=== PATIENT | male | born 1955 | race Caucasian/White ===

== ENCOUNTER 2017-03-04 16:02 | Inpatient (IN) | payer OTHER ==
[2017-03-04 16:11] VITALS: BMI 35.1
[2017-03-04] MEDS ORDERED: ASPIRIN 81 MG CHEWABLE TABLETS PO ONE (16:23)
--- NOTE | 2017-03-04 16:23 | PDOC ---
History of Present Illness <HeberRegi Mei - Last Filed: 03/04/17 17:51> <Jacinta Escamilla - Last Filed: 03/04/17 17:54> - General Chief Complaint: Irregular Heart Beat Stated Complaint: RAPID HEARTBEAT, PCP SENT Time Seen by Provider: 03/04/17 16:22 - History of Present Illness Initial Comments: 03/04/17 16:40 Patient is a 61 year old male with significant medical hx of HTN, HLD, and NIDDM who has been sent to the ED by PMD for new onset atrial flutter. The patient complains of one month of intermittent shortness of breath and palpitations. The patient states he's had a racing heart with some chest pressure, but no pressure within the past 24 hours. The patient does not have a founder and has never received a cardiac work up in the past. Today he saw his PMD for a regular check up, where he received an EKG and was found to be in atrial flutter with a heart rate in the 140s. The patient was sent to the ED for admission for new onset AFib. Denies syncope, nausea, vomiting, abdominal pain, headache, peripheral edema, or diaphoresis. PMD: Roman Gardner MD Surgical Hx: adenoidectomy, tonsillectomy, cholecystectomy Social Hx: Denies tobacco use. Occasional alcohol use. (Jacinta Escamilla) Past History - Past Medical History Anemia: No Asthma: No Cancer: No Cardiac Disorders: No CVA: No COPD: No CHF: No Dementia: No Diabetes: Yes (NIDDM) GI Disorders: No Disorders: No HTN: Yes Hypercholesterolemia: Yes Liver Disease: No Seizures: No Thyroid Disease: Yes - Surgical History Abdominal Surgery: Yes Appendectomy: No Cardiac Surgery: No Cholecystectomy: Yes Lung Surgery: No Neurologic Surgery: No Orthopedic Surgery: No - Psycho/Social/Smoking Cessation Hx Anxiety: No Suicidal Ideation: No Smoking Status: No Smoking History: Former smoker Have you smoked in the past 12 months: No Number of Cigarettes Smoked Daily: 0 If you are a former smoker, when did you quit?: 45 YRS AGO Information on smoking cessation initiated: No Hx Alcohol Use: No Drug/Substance Use Hx: No <Regi Buck - Last Filed: 03/04/17 17:51> <Jacinta Escamilla - Last Filed: 03/04/17 17:54> - Past Medical History Allergies/Adverse Reactions: Allergies Allergy/AdvReac Type Severity Reaction Status Date / Time No Known Allergies Allergy Verified 03/04/17 16:07 Home Medications: Ambulatory Orders Atorvastatin Ca [Lipitor (*)] 10 mg PO HS 01/17/13 Fenofibrate Nanocrystallized [Tricor] 145 mg PO DAILY 01/17/13 Levothyroxine [Synthroid] 75 mcg PO DAILY 01/17/13 Losartan Potassium 25 mg PO HS 01/17/13 Metformin HCl [Glucophage] 1,000 mg PO BID 01/17/13 Cardiac Specific PMH - Complaint Specific PMHX Pacemaker: No <Regi Buck - Last Filed: 03/04/17 17:51> Review of Systems <Regi Buck - Last Filed: 03/04/17 17:51> <Jacinta Escamilla - Last Filed: 03/04/17 17:54> - Review of Systems Comments:: 03/04/17 16:44 CONSTITUTIONAL: Absent: fever, chills, diaphoresis, generalized weakness, malaise, loss of appetite HEENT: Absent: rhinorrhea, nasal congestion, throat pain, throat swelling, difficulty swallowing, mouth swelling, ear pain, eye pain, visual changes CARDIOVASCULAR: Present: irregular heart rate, chest pressure, palpitations Absent: syncope, lightheadedness, peripheral edema RESPIRATORY: Present: shortness of breath Absent: cough, dyspnea with exertion, orthopnea, wheezing, stridor, hemoptysis GASTROINTESTINAL: Absent: abdominal pain, abdominal distension, nausea, vomiting, diarrhea, constipation, melena, hematochezia GENITOURINARY: Absent: dysuria, frequency, urgency, hesitancy, hematuria, flank pain, genital pain MUSCULOSKELETAL: Absent: myalgia, arthralgia, joint swelling SKIN: Absent: rash, itching, pallor HEMATOLOGIC/IMMUNOLOGIC: Absent: easy bleeding, easy bruising, lymphadenopathy, frequent infections ENDOCRINE: Absent: unexplained weight gain, unexplained weight loss, heat intolerance, cold intolerance NEUROLOGIC: Absent: headache, focal weakness or paresthesia, dizziness, unsteady gait, seizure, mental status changes, bladder or bowel incontinence. PSYCHIATRIC: Absent: anxiety, depression, suicidal or homicidal ideation, hallucinations (Jacinta Escamilla) *Physical Exam <Regi Buck - Last Filed: 03/04/17 17:51> <AndiJacinta faith - Last Filed: 03/04/17 17:54> - Vital Signs Last Vital Signs Temp Pulse Resp BP Pulse Ox 98.4 F 77 20 134/115 95 03/04/17 16:07 03/04/17 17:17 03/04/17 17:17 03/04/17 17:17 03/04/17 17:17 - Physical Exam Comments: GENERAL: Well developed, well nourished. Awake and alert. No acute distress. HEENT: Normocephalic, atraumatic. PERRLA, EOMI. No conjunctival pallor. Sclera are non- icteric. Moist mucous membranes. Oropharynx is clear. NECK: Supple. Full ROM. No JVD. Carotid pulses 2+ and symmetric, without bruits. No thyromegaly. No lymphadenopathy. CARDIOVASCULAR: Tachycardia, irregularly irregular. No murmurs, rubs, or gallops. Distal pulses are 2+ and symmetric. PULMONARY: Mild tachypnea. No evidence of respiratory distress. Lungs clear to auscultation bilaterally. No wheezing, rales or rhonchi. ABDOMINAL: Soft. Non-tender. Non-distended. No rebound or guarding. No organomegaly. Normoactive bowel sounds. MUSCULOSKELETAL: Normal range of motion at all joints. No bony deformities or tenderness. No CVA tenderness. EXTREMITIES: No cyanosis. No clubbing. No edema. No calf tenderness. SKIN: Warm and dry. Normal capillary refill. No rashes. No jaundice. NEUROLOGICAL: Alert, awake, appropriate. Cranial nerves 2-12 intact. Normal speech. Gait is normal without ataxia. PSYCHIATRIC: Cooperative. Good eye contact. Appropriate mood and affect. 03/04/17 16:45 (AndiJacinta) Heart Score/ECG Review - History History: Highly suspicious - Electrocardiogram EKG: Non specific repolarization disturbance - Age Age: 45-65 - Risk Factors Risk Factors Heart Score: Yes Hx Hypercholesterolemia, Yes Hx Hypertension, Yes Hx Diabetes Based on the list above the patient has:: >/=3 risk factors or Hx atherosclerotic disease - Troponin Troponin: </= normal limit - Score Heart Score - Total: 6 #1 Compared to previous ECG there are: Changes noted - ECG Impressions Tachycardia: Atrial Flutter (aflutter 2:1 @ 147 bpm upon arrival to ER) <Regi Buck - Last Filed: 03/04/17 17:51> <Jacinta Escamilla - Last Filed: 03/04/17 17:54> #1 03/04/17 16:36 Poor data quality, interpretation may be adversely affected Atrial flutter at 147 BPM with 2:1 AV conduction Right superior axis deviation Pulmonary disease pattern Marked ST abnormality, possible inferior subendocardial injury Abnormal ECG (Jacinta Escamilla) ED Treatment Course - LABORATORY CBC & Chemistry Diagram: 03/04/17 16:20 03/04/17 16:20 <Regi Buck - Last Filed: 03/04/17 17:51> - LABORATORY CBC & Chemistry Diagram: 03/04/17 16:20 03/04/17 16:20 <Jacinta Escamilla - Last Filed: 03/04/17 17:54> - ADDITIONAL ORDERS Additional order review: Laboratory Results 03/04/17 03/04/17 03/04/17 16:20 16:20 16:20 INR 1.33 H PTT (Actin FS) 28.8 Sodium Cancelled Potassium Cancelled Chloride Cancelled Carbon Dioxide Cancelled Anion Gap Cancelled BUN Cancelled Creatinine Cancelled Creat Clearance w eGFR Cancelled Random Glucose Cancelled Calcium Cancelled Total Bilirubin Cancelled AST Cancelled ALT Cancelled Alkaline Phosphatase Cancelled Creatine Kinase Cancelled Troponin I Cancelled B-Natriuretic Peptide Cancelled Total Protein Cancelled Albumin Cancelled 03/04/17 16:20 RBC 4.58 MCV 91.0 MCHC 32.8 RDW 15.4 MPV 11.8 H Neutrophils % 63.5 Lymphocytes % 26.5 Monocytes % 7.1 Eosinophils % 1.9 Basophils % 1.0 - RADIOLOGY Radiograph Interpretation: 03/04/17 17:53 Chest X-Ray Impression: Cardiomegaly, mild congestion. Reported By: Sathya Mcclain MD (Jacinta Escamilla) - Medications Given in the ED: ED Medications Discontinued Medications Generic Name Dose Route Start Last Admin Trade Name Freq PRN Reason Stop Dose Admin Aspirin 162 mg 03/04/17 16:23 03/04/17 17:08 Asa - PO 03/04/17 16:24 162 mg ONCE ONE Administration Diltiazem HCl 20 mg 03/04/17 16:29 03/04/17 16:35 Cardizem Injection - IVPUSH 03/04/17 16:30 20 mg ONCE ONE Administration *DC/Admit/Observation/Transfer - Discharge Dispostion Admit: Yes <Regi Buck - Last Filed: 03/04/17 17:51> <Jacinta Escamilla - Last Filed: 03/04/17 17:54> Diagnosis at time of Disposition: New onset atrial flutter Diabetes Qualifiers: Diabetes mellitus type: type 2 Diabetes mellitus complication status: with unspecified complications Diabetes mellitus extermination inspector insulin use: without extermination inspector use Qualified Code(s): E11.8 - Type 2 diabetes mellitus with unspecified complications Hypertension Qualifiers: Hypertension type: essential hypertension Qualified Code(s): I10 - Essential ( primary) hypertension - Referrals Referrals: Roman Gardner MD [Primary Care Provider] - - Attestations Scribe Attestion: 03/04/17 16:48 Documentation prepared by Jacinta Escamilla, acting as medical typist for Regi Buck MD. (Jacinta Escamilla)
[2017-03-04] MEDS ORDERED: dilTIAZem HCL 50 MG/10 ML - 10 ML VIAL IVPUSH ONE ×2 (16:29→18:50)
[2017-03-04] MEDS ORDERED: HEPARIN NA (PORCINE) 5,000 UNITS/ML 1ML VIAL IVPUSH PRN ×2 (16:30)
[2017-03-04] MEDS ORDERED: dilTIAZem HCL 125 MG/25 ML - 25 ML VIAL ONE ×2 (16:31→18:46)
[2017-03-04] MEDS ORDERED: ASPIRIN 81 MG CHEWABLE TABLETS ONE (17:06)
[2017-03-04 17:22] LABS: EOSINOPHIL 1.9 % (0-4.5); MCH 29.9 pg (25.7-33.7); MCHC 32.8 g/dl (32.0-35.9); MEAN PLT VOLUME 11.8 fl (7.5-11.1); NEUTROPHILS 63.5 % (42.8-82.8); PLATELET COUNT 161 K/MM3 (134-434); RDW 15.4 % (11.9-15.9)
[2017-03-04 17:38] LABS: INR 1.33 (0.82-1.09); PROTHROMBIN TIME (PATIENT) 14.7 SEC (9.98-11.88)
[2017-03-04 17:41] LABS: ACTIVATED PTT 28.8 SECONDS (26.9-34.4)
[2017-03-04] MEDS ORDERED: HEPARIN INFUSION - 500 ML IVPB ONE (17:54)
[2017-03-04] MEDS ORDERED: HEPARIN NA (PORCINE) 5,000 UNITS/ML 1ML VIAL ONE (17:54)
[2017-03-04] MEDS: HEPARIN - 25,000 UNIT in SODIUM CHLORIDE 495 ML IV SCH (18:02)
[2017-03-04] MEDS: HEPARIN NA (PORCINE) 5,000 UNITS/ML 1ML VIAL IVPUSH PRN (18:02)
[2017-03-04] MEDS ORDERED: dilTIAZem HCL 30 MG TABLET (FP) ONE (18:45)
[2017-03-04 18:47] LABS: ALBUMIN 3.6 g/dl (3.4-5.0); ANION GAP 10 (8-16); CALCIUM 9.2 mg/dL (8.5-10.1); CO2 27 mmol/L (21-32); COCKROFT - GAULT 104.51; CREATININE 1.2 mg/dL (0.7-1.3); GLUCOSE,RANDOM 190 mg/dL (74-106); SGOT/AST 24 U/L (15-37); SGPT/ALT 35 U/L (12-78)
[2017-03-04 18:51] LABS: ALK PHOS 13 U/L (45-117); BILIRUBIN,TOTAL 0.5 mg/dL (0.2-1.0); TOT PROT 6.5 g/dl (6.4-8.2); TROPONIN I 0.02 ng/ml (0.00-0.05)
[2017-03-04] MEDS ORDERED: dilTIAZem HCL 60 MG TABLET (FP) ONE (19:44)
[2017-03-04] MEDS ORDERED: ONDANSETRON 4 MG/2 ML VIAL IVPB PRN (20:06)
[2017-03-04] MEDS ORDERED: ACETAMINOPHEN 325 MG TABLET (FP) PO PRN (20:06)
[2017-03-04] MEDS: INSULIN SLIDING SCALE (NOVOLOG) 1 VIAL SQ SCH (22:00)
[2017-03-04] MEDS ORDERED: PATIENT'S OWN MEDICATION (NON-FORMULARY) (Metformin Hcl [Glucophage] 1,000 MG) PO SCH (22:00)
[2017-03-04] MEDS ORDERED: dilTIAZem HCL 30 MG TABLET (FP) PO SCH (22:00)
[2017-03-04] MEDS: LOSARTAN POTASSIUM 25 MG TABLET PO SCH (22:03)
[2017-03-04] MEDS: ATORVASTATIN CA 10 MG TABLET (FP) PO SCH (22:03)
[2017-03-05] MEDS: dilTIAZem HCL 30 MG TABLET (FP) PO SCH ×4 (00:28→17:10)
[2017-03-05] MEDS: INSULIN SLIDING SCALE (NOVOLOG) 1 VIAL SQ SCH ×4 (06:40→21:41)
[2017-03-05] MEDS: LEVOTHYROXINE NA 75 MCG TABLET (FP) PO SCH (06:41)
[2017-03-05] MEDS: metFORMIN HCL 500 MG TABLET (FP) PO SCH ×2 (06:41→17:09)
[2017-03-05 07:47] LABS: ANION GAP 10 (8-16); CALCIUM 8.6 mg/dL (8.5-10.1); CO2 27 mmol/L (21-32); COCKROFT - GAULT 104.53; CREATININE 1.2 mg/dL (0.7-1.3); GLUCOSE,RANDOM 121 mg/dL (74-106); MAGNESIUM 1.9 mg/dL (1.8-2.4); PHOSPHOROUS 3.4 mg/dL (2.5-4.9)
[2017-03-05 08:53] LABS: FREE T4 1.18 ng/dl (0.76-1.16)
[2017-03-05] MEDS: FENOFIBRIC ACID 135 MG CAP PO SCH (09:04)
[2017-03-05] MEDS: PANTOPRAZOLE 40 MG TABLET (FP) PO SCH (09:04)
[2017-03-05] MEDS: HEPARIN - 25,000 UNIT in SODIUM CHLORIDE 495 ML IV SCH ×2 (09:06→17:34)
[2017-03-05] MEDS: HEPARIN NA (PORCINE) 5,000 UNITS/ML 1ML VIAL IVPUSH PRN (09:13)
--- NOTE | 2017-03-05 09:43 | CON.CARD ---
Cardiology Consult (text) - Consultation Consultation Note: CC: new atrial flutter 61 year old male with significant medical hx of HTN, HLD, single kidney ( congenital), hypothyroid and NIDDM who has been sent to the ED by PMD for new onset atrial flutter. one month of intermittent shortness of breath and palpitations: racing heart with some chest pressure, but no pressure within the past 24 hours. 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 On admit, saw his PMD for a regular check up, where he received an EKG and was found to be in atrial flutter with a heart rate in the 140s. Has been placed on heparin drip. Assoc sx's of fatigue, orthopnea, abdominal distension/early satiety. unable to sleep at night and too fatigued to participate in his usual activities, golf etc.. Denies preceding viral illness, alcohol intake, denies f/c/s, nausea, vomiting , abdominal pain, headache, diaphoresis. Denies le edema, presyncope, syncope, bleeding, claudication or transient neurologic symptoms. PMhx: per hpi Surgical Hx: adenoidectomy, tonsillectomy, cholecystectomy Social Hx: never smoker, minimal alcohol use. no illicits fam hx: father with prior arryhtmia requiring cardioversion ros: per hpi Ambulatory Orders Atorvastatin Ca [Lipitor (*)] 10 mg PO HS 01/17/13 Fenofibrate Nanocrystallized [Tricor] 145 mg PO DAILY 01/17/13 Levothyroxine [Synthroid] 75 mcg PO DAILY 01/17/13 Losartan Potassium 25 mg PO HS 01/17/13 Metformin HCl [Glucophage] 1,000 mg PO BID 01/17/13 Current Medications Acetaminophen (Tylenol -) 650 mg PO Q4H PRN PRN Reason: FEVER OR PAIN Atorvastatin Calcium (Lipitor -) 10 mg PO HS [facility] Last Admin: 03/04/17 22:03 Dose: 10 mg Diltiazem HCl (Cardizem -) 30 mg PO Q6HPO [facility] Last Admin: 03/05/17 05:30 Dose: 30 mg Fenofibric Acid (Trilipix -) 135 mg PO DAILY [facility] Last Admin: 03/05/17 09:04 Dose: 135 mg Heparin Sodium (Porcine) (Heparin -) 5,000 unit IVPUSH PRN PRN PRN Reason: Heparin Last Admin: 03/05/17 09:13 Dose: 5,000 unit Heparin Sodium (Porcine) (Heparin -) 1,000 unit IVPUSH PRN PRN PRN Reason: Heparin Heparin Sodium (Porcine) 25, (000 unit/ Sodium Chloride) 500 mls @ 20 mls/hr IV TITR VERONICA; 1,000 UNIT/HR PRN Reason: Protocol Last Admin: 03/05/17 09:06 Dose: 23 mls/hr Insulin Aspart (Novolog Vial Sliding Scale -) 1 vial SQ ACHS VERONICA PRN Reason: Protocol Last Admin: 03/05/17 06:40 Dose: Not Given Levothyroxine Sodium (Synthroid -) 75 mcg PO ACBK [facility] Last Admin: 03/05/17 06:41 Dose: 75 mcg Losartan Potassium (Cozaar -) 25 mg PO HS [facility] Last Admin: 03/04/17 22:03 Dose: 25 mg Metformin HCl (Glucophage -) 1,000 mg PO BIDI [facility] Last Admin: 03/05/17 06:41 Dose: 1,000 mg Ondansetron HCl (Zofran Injection) 4 mg IVPB Q6H PRN PRN Reason: NAUSEA Pantoprazole Sodium (Protonix -) 40 mg PO DAILY [facility] Last Admin: 03/05/17 09:04 Dose: 40 mg Vital Signs - 24 hr 03/04/17 03/04/17 03/04/17 16:07 16:35 17:17 Temperature 98.4 F Pulse Rate 146 H Pulse Rate [ 147 H 77 Apical] Respiratory 19 20 20 Rate Blood Pressure 153/99 Blood Pressure 146/105 134/115 [Left Arm] O2 Sat by Pulse 98 98 95 Oximetry (%) 03/04/17 03/04/17 03/04/17 18:02 18:42 19:01 Temperature Pulse Rate Pulse Rate [ 147 H 104 H Apical] Respiratory 18 20 Rate Blood Pressure 125/94 Blood Pressure 124/94 [Left Arm] O2 Sat by Pulse 100 100 Oximetry (%) 03/04/17 03/04/17 03/05/17 20:38 20:41 02:00 Temperature 98.5 F 98.5 F 97.7 F Pulse Rate 91 H 91 H 100 H Pulse Rate [ Apical] Respiratory 18 18 20 Rate Blood Pressure 137/84 137/84 126/64 Blood Pressure [Left Arm] O2 Sat by Pulse 100 Oximetry (%) 03/05/17 06:00 Temperature 98.6 F Pulse Rate 81 Pulse Rate [ Apical] Respiratory 20 Rate Blood Pressure 109/69 Blood Pressure [Left Arm] O2 Sat by Pulse Oximetry (%) Intake & Output 03/03/17 03/04/17 03/05/17 03/06/17 07:59 07:59 07:59 07:59 Intake Total 230 Output Total 400 Balance -170 Weight 252 lb 0.8 oz NAD, calm jvd mild elevation, neck supple bibasilar crackles, rt basilar dullness, nl effort rate controlled, irregular rhythm, nl s1, s2 no mrg. non-displaced pmi + bs soft nt nd obese ext with trace edema no cyanosis, clubbing no carotid bruits aaox3 no jaundice, diaphoresis CBC, BMP 03/04/17 16:20 03/05/17 05:35 Laboratory Tests 03/04/17 03/04/17 03/04/17 17:39 17:39 19:11 Magnesium Creatine Kinase 267 Creatine Kinase Index 1.3 CK-MB (CK-2) 3.425 Troponin I 0.02 B-Natriuretic Peptide 1249.09 H Albumin 3.6 TSH 2.37 Free T4 03/05/17 05:35 Magnesium 1.9 Creatine Kinase Creatine Kinase Index CK-MB (CK-2) Troponin I B-Natriuretic Peptide Albumin TSH Free T4 1.18 H EKG 03/04 PCP: atrial flutter. VR 145 bpm. rt superior axis, inferior STD ischemia vs. strain. tele: atrial flutter with intermittent rates into the 120's. cxr :increased interstitial markings, possible acute congestion 61 year old male with significant medical hx of HTN, HLD, hypothyroid and NIDDM who has been sent to the ED by PMD for new onset atrial flutter. new onset atrial flutter - echo - inferior std. complete KAILEY. first set of enzymes negative. - Based on CHADS-VASC warrants AC. Currently on heparin drip. Can transition to eliquis if affordable per insurance, would confirm before transitioning. Otherwise will need coumadin - currently reasonable rate control with diltiazem, but showing episodes of volume overload. May need beta kanu if echo shows depressed function. May need to lower losartan dose if low bp persists. - management of thyroid per pmd. - If does not convert on his own without diuresis, should be considered for elective outpatient cardioversion since symptomatic. - no RF's for PE, but if right heart shows strain on echo, would consider evaluation. EKG with signs of rt sided abnormalities, no comparison available. - recommend jere screening as outpatient. HTN - on losartan as outpatient, meds as above HL - on tricor and low dose atorvastatin as outpatient, con't
[2017-03-05] MEDS ORDERED: PATIENT'S OWN MEDICATION (NON-FORMULARY) (Fenofibrate Nanocrystallized [Tricor] 145 MG) PO SCH (10:00)
[2017-03-05 11:10] LABS: TROPONIN I < 0.02 ng/ml (0.00-0.05)
--- NOTE | 2017-03-05 11:31 | HP ---
Admitting History and Physical - Primary Care Physician PCP: Roman Gardner - Admission Chief Complaint: I felt bad History of Present Illness: Mr Deras is a very pleasant 61 year old male who was sent in by Dr Gardner for new onset afib with rvr. He says he overall has been doing well, but over the past month has episodes where he feels bad. He says it is mainly shortness of breath. He notes the shortness of breath on exertion and when he is lying down. He has to sit up to sleep sometimes. Aside from this he is doing well. He denies fevers, chills, lightheadedness, dizziness, passing out, chest pain, coughing, abdominal pain, nausea, vomiting, diarrhea, difficulty or pain on urination, or swelling. He was seen in the office and was found to have new onset atrial fibrillation. He was sent in for further evaluation. Currently he says he is feeling well. History Source: Patient Limitations to Obtaining History: No Limitations - Past Medical History Cardiovascular: Yes: HTN, Hyperlipdemia Endocrine: Yes: Diabetes Mellitus, Hypothyroidism - Past Surgical History Past Surgical History: Yes: Tonsillectomy - Smoking History Smoking history: Former smoker Have you smoked in the past 12 months: No Aproximately how many cigarettes per day: 0 If you are a former smoker, when did you quit?: 45 YRS AGO - Alcohol/Substance Use Hx Alcohol Use: No History of Substance Use: reports: None - Social History Usual Living Arrangement: Yes: With Spouse ADL: Independent History of Recent Travel: No Home Medications - Allergies Allergies/Adverse Reactions: Allergies Allergy/AdvReac Type Severity Reaction Status Date / Time No Known Allergies Allergy Verified 03/04/17 16:07 - Home Medications Home Medications: Ambulatory Orders Atorvastatin Ca [Lipitor (*)] 10 mg PO HS 01/17/13 Fenofibrate Nanocrystallized [Tricor] 145 mg PO DAILY 01/17/13 Levothyroxine [Synthroid] 75 mcg PO DAILY 01/17/13 Losartan Potassium 25 mg PO HS 01/17/13 Metformin HCl [Glucophage] 1,000 mg PO BID 01/17/13 Family Disease History - Family Disease History Family Disease History: Diabetes: Father Review of Systems Findings/Remarks: Full review of systems obtained, as per HPI and otherwise negative Physical Examination Vital Signs: Vital Signs Temperature 98.6 F 03/05/17 06:00 Pulse Rate 81 03/05/17 06:00 Respiratory Rate 20 03/05/17 06:00 Blood Pressure 109/69 03/05/17 06:00 O2 Sat by Pulse Oximetry (%) 98 03/05/17 09:00 Constitutional: Yes: Well Nourished, No Distress, Calm Eyes: Yes: Conjunctiva Clear, EOM Intact, PERRL HENT: Yes: Atraumatic, Normocephalic Cardiovascular: Yes: Tachycardia, Pulse Irregular. No: Gallop, Murmur, Rub Respiratory: Yes: Regular, CTA Bilaterally. No: Rales, Rhonchi, Wheezes Gastrointestinal: Yes: Normal Bowel Sounds, Soft. No: Distention, Tenderness Extremities: Yes: WNL Edema: No Labs: CBC, BMP 03/05/17 05:35 Imaging - Results Chest X-ray: Report Reviewed, Image Reviewed EKG: Image Reviewed Problem List - Problems (1) New onset atrial flutter Assessment/Plan: -patient comes in with atrial fib/flutter with rvr -controlled with diltiazem -on heparin gtt -case d/w Dr Edmond -clinically with fluid overload -discussion of possible PE -considered CT scan with PE protocol, however patient has one kidney and has HTN and DM -cannot do V/Q scan since has changes on chest x-ray -d-dimer will not be elucidating in this situation -will obtain ECHO, if has R heart strain will obtain CT scan with PE protocol and give mucomyst for renal protection -patient will be on anticoagulation so if no right heart strain treatment would be unchanged Code(s): I48.92 - UNSPECIFIED ATRIAL FLUTTER (2) Diabetes Assessment/Plan: -diabetic diet -continue metformin -SSI and FSBS -glucose currently well controlled Code(s): E11.9 - TYPE 2 DIABETES MELLITUS WITHOUT COMPLICATIONS Qualifiers: Diabetes mellitus type: type 2 Diabetes mellitus complication status: with unspecified complications Diabetes mellitus care home insulin use: without care home use Qualified Code(s): E11.8 - Type 2 diabetes mellitus with unspecified complications; Z79.4 - prison (current) use of insulin (3) Hypertension Assessment/Plan: -continue cozaar -on diltiazem Code(s): I10 - ESSENTIAL (PRIMARY) HYPERTENSION Qualifiers: Hypertension type: essential hypertension Qualified Code(s): I10 - Essential (primary) hypertension (4) Hypothyroidism Assessment/Plan: -continue synthroid Code(s): E03.9 - HYPOTHYROIDISM, UNSPECIFIED (5) CHF (congestive heart failure) Assessment/Plan: -secondary to atrial fibrillation -receiving IV lasix -await ECHO results to distinguish heart failure Code(s): I50.9 - HEART FAILURE, UNSPECIFIED Qualifiers: Congestive heart failure type: unspecified congestive heart failure type Congestive heart failure chronicity: acute Qualified Code(s): I50.9 - Heart failure, unspecified
[2017-03-05] MEDS: FUROSEMIDE 40 MG/4 ML INJECTABLE VIAL IVPUSH SCH (12:08)
[2017-03-05] MEDS: LOSARTAN POTASSIUM 25 MG TABLET PO SCH (21:52)
[2017-03-05] MEDS: ATORVASTATIN CA 10 MG TABLET (FP) PO SCH (21:52)
[2017-03-05] MEDS: APIXABAN 5 MG TABLET PO SCH (21:52)
--- NOTE | 2017-03-05 22:57 | EKG ---
Test Reason : Blood Pressure : / mmHG Vent. Rate : 090 BPM Atrial Rate : 293 BPM P-R Int : 000 ms QRS Dur : 096 ms QT Int : 368 ms P-R-T Axes : 000 -47 -70 degrees QTc Int : 450 ms ATRIAL FLUTTER WITH VARIABLE A-V BLOCK LEFT AXIS DEVIATION ABNORMAL ECG WHEN COMPARED WITH ECG OF 04 MAR 2017 VENT. RATE HAS DECREASED Confirmed by VANESSA DIAS MD ([id number]) on 03/05/2017 10:57:21 PM Referred By: Confirmed By:VANESSA DIAS MD
--- NOTE | 2017-03-05 22:58 | EKG ---
Test Reason : Blood Pressure : / mmHG Vent. Rate : 147 BPM Atrial Rate : 294 BPM P-R Int : 000 ms QRS Dur : 088 ms QT Int : 216 ms P-R-T Axes : 266 254 -89 degrees QTc Int : 338 ms ATRIAL FLUTTER WITH 2:1 A-V CONDUCTION NONSPECIFIC ST AND T WAVE ABNORMALITY ABNORMAL ECG NO PREVIOUS ECGS AVAILABLE Confirmed by VANESSA DIAS MD ([id number]) on 03/05/2017 10:57:55 PM Referred By: Confirmed By:VANESSA DIAS MD
[2017-03-05] MEDS ORDERED: diphenhydrAMINE HCL 25 MG CAPSULE (FP) PO PRN (23:03)
[2017-03-06] MEDS: dilTIAZem HCL 30 MG TABLET (FP) PO SCH ×2 (00:03→06:27)
[2017-03-06] MEDS: INSULIN SLIDING SCALE (NOVOLOG) 1 VIAL SQ SCH ×4 (06:09→22:11)
[2017-03-06] MEDS: LEVOTHYROXINE NA 75 MCG TABLET (FP) PO SCH (06:27)
[2017-03-06] MEDS: metFORMIN HCL 500 MG TABLET (FP) PO SCH ×2 (06:27→17:59)
[2017-03-06 07:59] LABS: MCH 30.6 pg (25.7-33.7); MCHC 33.8 g/dl (32.0-35.9); MEAN CELL VOLUME 90.4 fl (80-96); MEAN PLT VOLUME 10.8 fl (7.5-11.1); PLATELET COUNT 138 K/MM3 (134-434); RDW 14.9 % (11.9-15.9); WHITE BLOOD COUNT 7.4 K/mm3 (4.0-10.0)
[2017-03-06 09:19] LABS: CALCIUM 8.5 mg/dL (8.5-10.1); COCKROFT - GAULT 103.01; CREATININE 1.2 mg/dL (0.7-1.3); MAGNESIUM 1.8 mg/dL (1.8-2.4); PHOSPHOROUS 3.4 mg/dL (2.5-4.9)
[2017-03-06] MEDS: FENOFIBRIC ACID 135 MG CAP PO SCH (09:42)
[2017-03-06] MEDS: FUROSEMIDE 40 MG/4 ML INJECTABLE VIAL IVPUSH SCH (09:42)
[2017-03-06] MEDS: APIXABAN 5 MG TABLET PO SCH ×2 (09:42→22:09)
[2017-03-06] MEDS: PANTOPRAZOLE 40 MG TABLET (FP) PO SCH (09:42)
--- NOTE | 2017-03-06 11:06 | PN ---
Progress Note (short form) - Note Progress Note: s: no palps cp dizzy; mina improved o: Vital Signs Period Temp Pulse Resp BP Sys/English Pulse Ox Last 24 Hr 96.9 F-98.4 F 81-100 19-20 107-142/58-90 98 NAD, calm jvd mild elevation, neck supple cta bl nl eff rate controlled at rest, irregular rhythm, nl s1, s2 no mrg. + bs soft nt nd obese ext with trace edema no cyanosis, clubbing aaox3 no jaundice, diaphoresis Current Medications Generic Name Dose Route Start Last Admin Trade Name Freq PRN Reason Stop Dose Admin Acetaminophen 650 mg 03/04/17 20:06 Tylenol - PO Q4H PRN FEVER OR PAIN Apixaban 5 mg 03/05/17 22:00 03/06/17 09:42 Eliquis - PO 5 mg BID VERONICA Administration Atorvastatin Calcium 10 mg 03/04/17 22:00 03/05/17 21:52 Lipitor - PO 10 mg HS VERONICA Administration Diltiazem HCl 180 mg 03/06/17 11:00 Cardizem Cd - PO DAILY VERONICA Diphenhydramine HCl 50 mg 03/05/17 23:03 Benadryl - PO HS PRN INSOMNIA Fenofibric Acid 135 mg 03/05/17 10:00 03/06/17 09:42 Trilipix - PO 135 mg DAILY VERONICA Administration Furosemide 40 mg 03/05/17 12:00 03/06/17 09:42 Lasix Injection - IVPUSH 40 mg DAILY VERONICA Administration Insulin Aspart 1 vial 03/04/17 22:00 03/06/17 06:09 Novolog Vial Sliding Scale - SQ Not Given ACHS VERONICA Protocol Levothyroxine Sodium 75 mcg 03/05/17 07:00 03/06/17 06:27 Synthroid - PO 75 mcg ACBK VERONICA Administration Losartan Potassium 25 mg 03/04/17 22:00 03/05/17 21:52 Cozaar - PO 25 mg HS VERONICA Administration Metformin HCl 1,000 mg 03/05/17 07:00 03/06/17 06:27 Glucophage - PO 1,000 mg BIDI VERONICA Administration Ondansetron HCl 4 mg 03/04/17 20:06 Zofran Injection IVPB Q6H PRN NAUSEA Pantoprazole Sodium 40 mg 03/05/17 10:00 03/06/17 09:42 Protonix - PO 40 mg DAILY VERONICA Administration CBC, BMP 03/06/17 05:50 03/06/17 05:50 EKG 03/04 PCP: atrial flutter. VR 145 bpm. rt superior axis, inferior STD ischemia vs. strain. tele: atrial flutter with controlled rate at rest but up to 140s with exertion echo 03/2017: limited study: mild conc lvh, ?lvef, ?rv size/fcn, mod mr, mild tr, mild pr, mild ao root dil, small pericardial eff, no tamponade a/p: 61 year old male with significant medical hx of HTN, HLD, hypothyroid and NIDDM who has been sent to the ED by PMD for new onset atrial flutter. new onset atrial flutter, acute diastolic chf: - echo here very limited/tds, will need better quality outpt echo - Based on CHADS-VASC warrants AC. cont eliquis. - currently rate controlled at rest but he has rvr with minimal exertion. Will increase to dilt long acting 180 qd. - also with some vol overload likely due to rvr, will cont iv lasix for now - if unable to control rate will need parth/dccv prior to dc - recommend jere screening as outpatient. - cont tele HTN -cont current meds HL - on tricor and low dose atorvastatin as outpatient, con't
[2017-03-06] MEDS ORDERED: LEVOTHYROXINE NA 50 MCG TABLET (FP) PO SCH (14:46)
--- NOTE | 2017-03-06 14:47 | PN ---
Progress Note, Physician Chief Complaint: Mr Deras is without complaint. No cp, sob, n/v. Still tachycardic with minimal activity - Current Medication List Current Medications: Active Medications Acetaminophen (Tylenol -) 650 mg PO Q4H PRN PRN Reason: FEVER OR PAIN Apixaban (Eliquis -) 5 mg PO BID [facility] Last Admin: 03/06/17 09:42 Dose: 5 mg Atorvastatin Calcium (Lipitor -) 10 mg PO HS [facility] Last Admin: 03/05/17 21:52 Dose: 10 mg Diltiazem HCl (Cardizem Cd -) 180 mg PO DAILY [facility] Last Admin: 03/06/17 12:02 Dose: 180 mg Diphenhydramine HCl (Benadryl -) 50 mg PO HS PRN PRN Reason: INSOMNIA Fenofibric Acid (Trilipix -) 135 mg PO DAILY [facility] Last Admin: 03/06/17 09:42 Dose: 135 mg Furosemide (Lasix Injection -) 40 mg IVPUSH DAILY [facility] Last Admin: 03/06/17 09:42 Dose: 40 mg Insulin Aspart (Novolog Vial Sliding Scale -) 1 vial SQ ACHS [facility] PRN Reason: Protocol Last Admin: 03/06/17 12:01 Dose: Not Given Levothyroxine Sodium (Synthroid -) 50 mcg PO ACBK [facility] Losartan Potassium (Cozaar -) 25 mg PO HS [facility] Last Admin: 03/05/17 21:52 Dose: 25 mg Metformin HCl (Glucophage -) 1,000 mg PO BIDI [facility] Last Admin: 03/06/17 06:27 Dose: 1,000 mg Ondansetron HCl (Zofran Injection) 4 mg IVPB Q6H PRN PRN Reason: NAUSEA Pantoprazole Sodium (Protonix -) 40 mg PO DAILY [facility] Last Admin: 03/06/17 09:42 Dose: 40 mg - Objective Vital Signs: Vital Signs Temperature 98.3 F 03/06/17 14:00 Pulse Rate 90 03/06/17 14:00 Respiratory Rate 20 03/06/17 14:00 Blood Pressure 130/88 03/06/17 14:00 O2 Sat by Pulse Oximetry (%) 98 03/05/17 21:00 Constitutional: Yes: Well Nourished, No Distress, Calm Cardiovascular: Yes: Pulse Irregular. No: Tachycardia, Gallop, Murmur, Rub Respiratory: Yes: Regular, CTA Bilaterally. No: Rales, Rhonchi, Wheezes Gastrointestinal: Yes: Normal Bowel Sounds, Soft. No: Distention, Tenderness Extremities: Yes: WNL Edema: No Labs: CBC, BMP 03/06/17 05:50 03/06/17 05:50 INR, PTT INR 1.33 (0.82-1.09) H 03/04/17 16:20 Problem List - Problems (1) New onset atrial flutter Code(s): I48.92 - UNSPECIFIED ATRIAL FLUTTER (2) Diabetes Code(s): E11.9 - TYPE 2 DIABETES MELLITUS WITHOUT COMPLICATIONS Qualifiers: Diabetes mellitus type: type 2 Diabetes mellitus complication status: with unspecified complications Diabetes mellitus prison insulin use: without prison use Qualified Code(s): E11.8 - Type 2 diabetes mellitus with unspecified complications; Z79.4 - continuous churn buttermaker (current) use of insulin (3) Hypertension Code(s): I10 - ESSENTIAL (PRIMARY) HYPERTENSION Qualifiers: Hypertension type: essential hypertension Qualified Code(s): I10 - Essential (primary) hypertension (4) Hypothyroidism Code(s): E03.9 - HYPOTHYROIDISM, UNSPECIFIED (5) CHF (congestive heart failure) Code(s): I50.9 - HEART FAILURE, UNSPECIFIED Qualifiers: Congestive heart failure type: unspecified congestive heart failure type Congestive heart failure chronicity: acute Qualified Code(s): I50.9 - Heart failure, unspecified Assessment/Plan (1) New onset atrial flutter Assessment/Plan: -appreciate cardiology assistance -cardizem changed to long acting -continue anticoagulation with eliquis -may need cardioversion prior to discharge Code(s): I48.92 - UNSPECIFIED ATRIAL FLUTTER (2) Diabetes Assessment/Plan: -diabetic diet -continue metformin -SSI and FSBS -glucose currently well controlled Code(s): E11.9 - TYPE 2 DIABETES MELLITUS WITHOUT COMPLICATIONS Qualifiers: Diabetes mellitus type: type 2 Diabetes mellitus complication status: with unspecified complications Diabetes mellitus prison insulin use: without prison use Qualified Code(s): E11.8 - Type 2 diabetes mellitus with unspecified complications; Z79.4 - detention (current) use of insulin (3) Hypertension Assessment/Plan: -continue cozaar -on diltiazem Code(s): I10 - ESSENTIAL (PRIMARY) HYPERTENSION Qualifiers: Hypertension type: essential hypertension Qualified Code(s): I10 - Essential (primary) hypertension (4) Hypothyroidism Assessment/Plan: -considering FT4 is on the high end of normal, will decrease dose to 50mcg -will need follow up in 4-6 weeks as an outpatient Code(s): E03.9 - HYPOTHYROIDISM, UNSPECIFIED (5) CHF (congestive heart failure) Assessment/Plan: -ECHO did not evaluate LV systolic function secondary to technically limited study -unable to diagnose whether this is systolic or diastolic at this time -continue IV lasix per cardiology Code(s): I50.9 - HEART FAILURE, UNSPECIFIED Qualifiers: Congestive heart failure type: unspecified congestive heart failure type Congestive heart failure chronicity: acute Qualified Code(s): I50.9 - Heart failure, unspecified
[2017-03-06] MEDS ORDERED: INSULIN (NOVOLOG) ASPART 100 UNITS/ML 10ML VIAL ONE (21:58)
[2017-03-06] MEDS: LOSARTAN POTASSIUM 25 MG TABLET PO SCH (22:09)
[2017-03-06] MEDS: ATORVASTATIN CA 10 MG TABLET (FP) PO SCH (22:09)
[2017-03-07] MEDS: INSULIN SLIDING SCALE (NOVOLOG) 1 VIAL SQ SCH ×2 (06:54→11:53)
[2017-03-07] MEDS: metFORMIN HCL 500 MG TABLET (FP) PO SCH (06:55)
[2017-03-07 08:08] LABS: MCH 30.3 pg (25.7-33.7); MCHC 33.5 g/dl (32.0-35.9); MEAN CELL VOLUME 90.4 fl (80-96); MEAN PLT VOLUME 11.3 fl (7.5-11.1); PLATELET COUNT 143 K/MM3 (134-434); WHITE BLOOD COUNT 6.8 K/mm3 (4.0-10.0)
[2017-03-07 08:38] LABS: CALCIUM 9.2 mg/dL (8.5-10.1); COCKROFT - GAULT 110.03; CREATININE 1.1 mg/dL (0.7-1.3)
[2017-03-07] MEDS: APIXABAN 5 MG TABLET PO SCH (09:12)
[2017-03-07] MEDS: FENOFIBRIC ACID 135 MG CAP PO SCH (09:12)
[2017-03-07] MEDS: FUROSEMIDE 40 MG/4 ML INJECTABLE VIAL IVPUSH SCH (09:12)
[2017-03-07] MEDS: PANTOPRAZOLE 40 MG TABLET (FP) PO SCH (09:12)
--- NOTE | 2017-03-07 13:04 | PN ---
Progress Note (short form) - Note Progress Note: s: no palps cp dizzy; mina improved, feels well walking in halls last night o: Vital Signs Period Temp Pulse Resp BP Sys/English Pulse Ox Last 24 Hr 97.4 F-98.3 F 76-90 20-20 110-130/69-88 NAD, calm, no jvd cta bl nl eff rate controlled, irregular rhythm, nl s1, s2 no mrg. + bs soft nt nd obese no le e/c/c aaox3 no jaundice, diaphoresis Current Medications Generic Name Dose Route Start Last Admin Trade Name Freq PRN Reason Stop Dose Admin Acetaminophen 650 mg 03/04/17 20:06 Tylenol - PO Q4H PRN FEVER OR PAIN Apixaban 5 mg 03/05/17 22:00 03/07/17 09:12 Eliquis - PO 5 mg BID VERONICA Administration Atorvastatin Calcium 10 mg 03/04/17 22:00 03/06/17 22:09 Lipitor - PO 10 mg HS VERONICA Administration Diltiazem HCl 180 mg 03/06/17 11:00 03/07/17 09:12 Cardizem Cd - PO 180 mg DAILY [facility] Administration Diphenhydramine HCl 50 mg 03/05/17 23:03 Benadryl - PO HS PRN INSOMNIA Fenofibric Acid 135 mg 03/05/17 10:00 03/07/17 09:12 Trilipix - PO 135 mg DAILY [facility]ONICA Administration Furosemide 40 mg 03/05/17 12:00 03/07/17 09:12 Lasix Injection - IVPUSH 40 mg DAILY [facility]ONICA Administration Insulin Aspart 1 vial 03/04/17 22:00 03/07/17 11:53 Novolog Vial Sliding Scale - SQ Not Given ACHS VERONICA Protocol Levothyroxine Sodium 50 mcg 03/06/17 14:46 03/07/17 06:55 Synthroid - PO 50 mcg ACBK [facility] Administration Losartan Potassium 25 mg 03/04/17 22:00 03/06/17 22:09 Cozaar - PO 25 mg HS [facility]ONICA Administration Metformin HCl 1,000 mg 03/05/17 07:00 03/07/17 06:55 Glucophage - PO 1,000 mg BIDI [facility] Administration Ondansetron HCl 4 mg 03/04/17 20:06 Zofran Injection IVPB Q6H PRN NAUSEA Pantoprazole Sodium 40 mg 03/05/17 10:00 03/07/17 09:12 Protonix - PO 40 mg DAILY [facility] Administration CBC, BMP 03/07/17 05:40 03/07/17 05:40 EKG 03/04 PCP: atrial flutter. VR 145 bpm. rt superior axis, inferior STD ischemia vs. strain. tele: atrial flutter with controlled rate echo 03/2017: limited study: mild conc lvh, ?lvef, ?rv size/fcn, mod mr, mild tr, mild pr, mild ao root dil, small pericardial eff, no tamponade a/p: 61 year old male with significant medical hx of HTN, HLD, hypothyroid and NIDDM who has been sent to the ED by PMD for new onset atrial flutter. new onset atrial flutter, acute diastolic chf: - echo here very limited/tds, will need better quality outpt echo - Based on CHADS-VASC warrants AC. cont eliquis. - with dilt long acting 180 qd his HR is better controlled, at goal of <110 at rest for rate control strategy and mina improved - cont same dilt for now and pt will f/u as outpt for consideration of parth/dccv - also with some vol overload likely due to rvr, now improved s/p iv lasix. can change to lasix 40 qd upon dc. - recommend jere screening as outpatient. HTN -cont current meds HL - on tricor and low dose atorvastatin as outpatient, con't cardiac kline ok for dc with outpt cardio f/u 1-2 weeks
--- NOTE | 2017-03-07 13:24 | DS ---
Physical Examination Vital Signs: Vital Signs Temperature 98.1 F 03/07/17 02:00 Pulse Rate 89 03/07/17 06:00 Respiratory Rate 20 03/07/17 06:00 Blood Pressure 110/75 03/07/17 06:00 O2 Sat by Pulse Oximetry (%) 96 03/06/17 10:00 Constitutional: Yes: Well Nourished, No Distress, Calm Cardiovascular: Yes: Pulse Irregular. No: Tachycardia, Gallop, Murmur, Rub Respiratory: Yes: Regular, CTA Bilaterally. No: Rales, Rhonchi, Wheezes Gastrointestinal: Yes: Normal Bowel Sounds, Soft. No: Distention, Tenderness Extremities: Yes: WNL Edema: No Labs: CBC, BMP 03/07/17 05:40 03/07/17 05:40 Discharge Summary Reason For Visit: DIAB MELLITIS/HYPERT/NEW ONSET AFIB Current Active Problems CHF (congestive heart failure) (Acute) Diabetes (Acute) Hypertension (Acute) Hypothyroidism (Acute) New onset atrial flutter (Acute) Hospital Course: (1) New onset atrial flutter Code(s): I48.92 - UNSPECIFIED ATRIAL FLUTTER (2) Diabetes Code(s): E11.9 - TYPE 2 DIABETES MELLITUS WITHOUT COMPLICATIONS Qualifiers: Diabetes mellitus type: type 2 Diabetes mellitus complication status: with unspecified complications Diabetes mellitus termite control technician insulin use: without termite control technician use Qualified Code(s): E11.8 - Type 2 diabetes mellitus with unspecified complications; Z79.4 - skilled nursing (current) use of insulin (3) Hypertension Code(s): I10 - ESSENTIAL (PRIMARY) HYPERTENSION Qualifiers: Hypertension type: essential hypertension Qualified Code(s): I10 - Essential (primary) hypertension (4) Hypothyroidism Code(s): E03.9 - HYPOTHYROIDISM, UNSPECIFIED (5) CHF (congestive heart failure) Code(s): I50.9 - HEART FAILURE, UNSPECIFIED Qualifiers: Congestive heart failure type: unspecified congestive heart failure type Congestive heart failure chronicity: acute Qualified Code(s): I50.9 - Heart failure, unspecified Mr Deras is a very pleasant 61 year old male who presented with new onset atrial flutter. He was admitted to telemetry, started on short acting diltiazem , and anticoagulated with a heparin gtt. He was seen by cardiology and changed to long acting diltiazem and eliquis. His free T4 was high normal, so his synthroid was decreased. He was also fluid overloaded secondary to rapid atrial flutter and was diuresed with IV lasix. He improved significantly and is asymptomatic. His heart rate was controlled. Currently he is safe for discharge home. 36 minutes spent in preparation of this discharge Condition: Good - Instructions Diet, Activity, Other Instructions: resume previous diet and activity Referrals: Roman Gardner MD [Primary Care Provider] - Oliver Lucero MD [Staff Physician] - Disposition: HOME - Home Medications Comprehensive Discharge Medication List: Ambulatory Orders Atorvastatin Ca [Lipitor] 10 mg PO HS 01/17/13 Fenofibrate Nanocrystallized [Tricor] 145 mg PO DAILY 01/17/13 Losartan Potassium 25 mg PO HS 01/17/13 Metformin HCl [Glucophage] 1,000 mg PO BID 01/17/13 Apixaban [Eliquis -] 5 mg PO BID #60 tablet 03/07/17 Diltiazem Cd [Cardizem Cd -] 180 mg PO DAILY #30 cap.sa 03/07/17 Furosemide [Lasix] 40 mg PO DAILY #30 tablet 03/07/17 Levothyroxine [Synthroid -] 50 mcg PO ACBK #30 tablet 03/07/17
[2017-03-07 14:39] VITALS: BP 112/65; PULSE 80; TEMP 98
== END 2017-03-07 15:24 | disposition home or self-care (01) | DRG 544 ==
LOC: JER 16:02 → JERBED 17:49 → J4W 20:19
PROVIDERS: ADMIT Internal Medicine Geriatric Medicine; ATTEND Internal Medicine Geriatric Medicine
DX: I48.92 Unspecified atrial flutter (principal); I50.31 Acute diastolic (congestive) heart failure; I11.0 Hypertensive heart disease with heart failure; E78.00 Pure hypercholesterolemia, unspecified; E03.9 Hypothyroidism, unspecified; Q60.0 Renal agenesis, unilateral; I34.0 Nonrheumatic mitral (valve) insufficiency; I31.3 Pericardial effusion (noninflammatory)
CPT/HCPCS: 36415; 71010-TC; 80048; 80053; 82550; 82553; 83735; 83880; 84100; 84439; 84443; 84484; 85025; 85027; 85610; 85730; 93005; 93010; 93306-TC; 99285-25; J1644

== ENCOUNTER 2017-04-03 09:59 | Day surgery (SDC) | payer OTHER ==
[2017-04-02 15:15] VITALS: BMI 33.5
[2017-04-03] MEDS ORDERED: LIDOCAINE VISCOUS 2% ORAL/TOP 20 ML UNIT-DOSE CUP MM ONE (11:47)
--- NOTE | 2017-04-03 12:02 | PROC ---
Cardioversion Indication: Atrial flutter Risks and Benefits Explained: Yes Consent on Chart: Yes BULL done prior to Cardioversion: Yes BULL findings: no intracardiac thrombus Patient anticoagulated: Yes - Procedure Anesthesiologist present: Yes Medication given: propofol Joules delivered: 120 x1 Rhythm post cardioversion: sr Remarks: patient tolerated procedure well without complication
[2017-04-03 12:16] VITALS: TEMP 97.8
[2017-04-03 12:54] VITALS: BP 112/67; PULSE 86
--- NOTE | 2017-04-04 16:31 | EKG ---
Test Reason : Blood Pressure : / mmHG Vent. Rate : 090 BPM Atrial Rate : 090 BPM P-R Int : 178 ms QRS Dur : 114 ms QT Int : 390 ms P-R-T Axes : 060 -21 030 degrees QTc Int : 477 ms SINUS RHYTHM WITH MARKED SINUS ARRHYTHMIA POSSIBLE LEFT ATRIAL ENLARGEMENT BORDERLINE ECG WHEN COMPARED WITH ECG OF 04-MAR-2017 16:42, SINUS RHYTHM HAS REPLACED ATRIAL FLUTTER ST NO LONGER DEPRESSED IN INFERIOR LEADS ST NO LONGER DEPRESSED IN LATERAL LEADS NONSPECIFIC T WAVE ABNORMALITY, IMPROVED IN INFERIOR LEADS T WAVE INVERSION NO LONGER EVIDENT IN ANTEROLATERAL LEADS Confirmed by KARRIE JOHNSON MD ([id number]) on 04/04/2017 4:30:58 PM Referred By: Mo REINA Confirmed By:KARRIE JOHNSON MD
== END 2017-04-03 12:53 | disposition home or self-care (01) ==
LOC: JOR 09:59 → JASU-ENDO 09:59
PROVIDERS: ATTEND Internal Medicine Cardiovascular Disease
PROC: B246ZZ4 Ultrasonography of Right and Left Heart, Transesophageal (ICD-10-PCS; 2017-04-03)
PROC: 5A2204Z Restoration of Cardiac Rhythm, Single (ICD-10-PCS; principal; 2017-04-03 11:00)
DX: I48.92 Unspecified atrial flutter (principal)
CPT/HCPCS: 92960; 93005; 93010; 93312; 93325

== ENCOUNTER 2017-05-22 10:05 | Day surgery (SDC) | payer OTHER ==
[2017-05-22 10:41] VITALS: BMI 33.0
[2017-05-22] MEDS ORDERED: PROPOFOL 20 ML ONE (10:53)
[2017-05-22] MEDS ORDERED: LIDOCAINE VISCOUS 2% ORAL/TOP 100 ML BOTTLE MM ONE (11:46)
[2017-05-22 12:18] VITALS: TEMP 98.2
[2017-05-22 13:09] VITALS: BP 113/62; PULSE 100
--- NOTE | 2017-05-22 14:04 | PROC ---
Cardioversion Indication: Atrial flutter Risks and Benefits Explained: Yes Consent on Chart: Yes BULL done prior to Cardioversion: Yes BULL findings: No intracardiac thrombus Patient anticoagulated: Yes - Procedure Anesthesiologist present: Yes Medication given: propofol Joules delivered: 120, 150 Rhythm post cardioversion: sr Remarks: Patient tolerated procedure well, no complications. After first shock converted to sr but after a few minutes went back into aflutter. While still sedated gave another shock and converted to SR again. He awoke and about 30 minutes later he was back in aflutter again. He has appt next week with EP for ablation.
--- NOTE | 2017-05-22 14:57 | EKG ---
Test Reason : Blood Pressure : / mmHG Vent. Rate : 106 BPM Atrial Rate : 267 BPM P-R Int : 000 ms QRS Dur : 114 ms QT Int : 260 ms P-R-T Axes : -36 -35 009 degrees QTc Int : 345 ms ATRIAL FLUTTER WITH VARIABLE A-V BLOCK LEFT AXIS DEVIATION NONSPECIFIC T WAVE ABNORMALITY ABNORMAL ECG WHEN COMPARED WITH ECG OF 03-APR-2017 12:14, ATRIAL FLUTTER HAS REPLACED SINUS RHYTHM ST ELEVATION NOW PRESENT IN INFERIOR LEADS NONSPECIFIC T WAVE ABNORMALITY, WORSE IN INFERIOR LEADS NONSPECIFIC T WAVE ABNORMALITY, WORSE IN LATERAL LEADS QT HAS SHORTENED Confirmed by REN HENAO, ALEXIS ([id number]) on 05/22/2017 2:57:42 PM Referred By: Oliver Lucero Confirmed By:ALEXIS MCCLURE MD
== END 2017-05-22 13:09 | disposition home or self-care (01) ==
LOC: JASU-SURG 10:05
PROVIDERS: ATTEND Internal Medicine Cardiovascular Disease
PROC: 5A2204Z Restoration of Cardiac Rhythm, Single (ICD-10-PCS; 2017-05-22)
PROC: B246ZZ4 Ultrasonography of Right and Left Heart, Transesophageal (ICD-10-PCS; principal; 2017-05-22 11:00)
DX: I48.92 Unspecified atrial flutter (principal)
CPT/HCPCS: 92960; 93005; 93010; 93312; 93325

== ENCOUNTER 2019-03-06 09:24 | Day surgery (SDC) | payer OTHER ==
[2019-03-05 14:10] VITALS: BMI 39.9
[2019-03-06 11:45] VITALS: TEMP 97.8
[2019-03-06 12:30] VITALS: BP 131/76; PULSE 58
--- NOTE | 2019-03-09 14:45 | PATH ---
Surgical Pathology Report Patient Name: LLOYD BERGERON [facility]. Rec. #: [id number] /Age/Gender: 1955 (Age: 63) / M Account: [id number] Location: ASU-ENDOSCOPY Taken: 03/06/2019 Received: 03/06/2019 Reported: 03/09/2019 Physicians: Bolivar Gomes M.D. Specimen(s) Received A: SIGMOID COLON POLYP B: TRANSVERSE COLON POLYP C: ASCENDING COLON POLYP Clinical History History of adenomatous polyps, family history of colon cancer Postoperative diagnosis: Colon polyps, diverticulosis Final Diagnosis A. SIGMOID COLON, POLYP, BIOPSY: HYPERPLASTIC POLYP. B. TRANSVERSE COLON, POLYPS, BIOPSY: HYPERPLASTIC POLYP(S). C. ASCENDING COLON, POLYP, POLYPECTOMY: TUBULAR ADENOMA. Electronically Signed Liat Gasca M.D. Gross Description A. Received in formalin, labeled "sigmoid colon polyp biopsy" is a segundo, irregular portion of soft tissue measuring 0.3 cm. in greatest dimension. The specimen is submitted in toto in one cassette. B. Received in formalin, labeled "transverse colon polyps biopsy" are 4 segundo, irregular portions of soft tissue ranging from 0.3-0.7 cm. in greatest dimension. The specimens are submitted in toto in one cassette. C. Received in formalin, labeled "ascending colon polyp" are 5 segundo, irregular portions of soft tissue ranging from 0.1-0.4 ] cm. in greatest dimension. The specimens are submitted in toto in one cassette. DL/03/06/2019 saudi03/06/2019
== END 2019-03-06 12:31 | disposition home or self-care (01) ==
LOC: JASU-ENDO 09:24
PROVIDERS: ATTEND Internal Medicine Gastroenterology
PROC: 0DBN8ZX Excision of Sigmoid Colon, Via Natural or Artificial Opening Endoscopic, Diagnostic (ICD-10-PCS; 2019-03-06)
PROC: 0DBL8ZX Excision of Transverse Colon, Via Natural or Artificial Opening Endoscopic, Diagnostic (ICD-10-PCS; 2019-03-06)
PROC: 0DBK8ZX Excision of Ascending Colon, Via Natural or Artificial Opening Endoscopic, Diagnostic (ICD-10-PCS; principal; 2019-03-06 10:00)
DX: Z12.11 Encounter for screening for malignant neoplasm of colon (principal); D12.2 Benign neoplasm of ascending colon; D12.5 Benign neoplasm of sigmoid colon; D12.3 Benign neoplasm of transverse colon; K64.8 Other hemorrhoids; K57.30 Diverticulosis of large intestine without perforation or abscess without bleeding; Z86.010 Personal history of colon polyps
CPT/HCPCS: 82962; 88305-TC

== ENCOUNTER 2019-03-15 00:13 | Inpatient (IN) | payer OTHER ==
--- NOTE | 2019-03-15 01:19 | PDOC ---
History of Present Illness - General History Source: Patient Exam Limitations: No Limitations - History of Present Illness Initial Comments: 03/15/19 02:19 64 yo M with PMhx of afib( on eliquis ) , DM , HTN, and HLD presents with few hour history of rectal bleeding. He states that SaturdayMarch 06 he had colonoscopy with Dr. Gomes with polypectomy. He was told by he could resume his eliquis on of this week now presents with rectal bleeding this evening. It started at approx 21:00 he had a melenic stool. Since then has had four BM with bright red blood. He has nausea associated with bleed. He feels weak and clammy. Denies CP,DAVILA, SOB, abdominal pain. Timing/Duration: 1-3 hours Severity: moderate Associated Symptoms: reports: diaphoresis <Forrest Morgan - Last Filed: 03/15/19 03:27> <Julissa Venegas - Last Filed: 03/15/19 05:26> - General Stated Complaint: BLEEDING Time Seen by Provider: 03/15/19 00:53 Past History - Travel Traveled outside of the country in the last 30 days: No Close contact w/someone who was outside of country & ill: No - Past Medical History Anemia: No Asthma: No Cancer: No Cardiac Disorders: Yes (CARLOS, AFIB ABLATED 05/20, 03/21) CVA: No COPD: No CHF: No Dementia: No Diabetes: Yes (NIDDM) GI Disorders: Yes (DIVERTICULOSIS, ADENOMATOUS POLYP W/DYSPLASIA IN 2006) Disorders: No HTN: Yes Hypercholesterolemia: Yes Liver Disease: Yes (NAFLD,) Seizures: No Thyroid Disease: Yes (HYPOTHYROID) - Surgical History Abdominal Surgery: No Appendectomy: No Cardiac Surgery: No Cholecystectomy: Yes Lung Surgery: No Neurologic Surgery: No Orthopedic Surgery: No - Suicide/Smoking/Psychosocial Hx Smoking Status: No Smoking History: Former smoker Have you smoked in the past 12 months: No Number of Cigarettes Smoked Daily: 0 If you are a former smoker, when did you quit?: 45 YRS AGO Hx Alcohol Use: No Drug/Substance Use Hx: No Substance Use Type: None Hx Substance Use Treatment: No <Forrest Moragn - Last Filed: 03/15/19 03:27> <Julissa Venegas - Last Filed: 03/15/19 05:26> - Past Medical History Allergies/Adverse Reactions: Allergies Allergy/AdvReac Type Severity Reaction Status Date / Time No Known Allergies Allergy Verified 03/04/17 16:07 Home Medications: Ambulatory Orders Atorvastatin Ca [Lipitor] 10 mg PO HS 01/17/13 Fenofibrate Nanocrystallized [Tricor] 145 mg PO HS 01/17/13 metFORMIN HCL [Glucophage] 1,000 mg PO BID 01/17/13 Apixaban [Eliquis -] 5 mg PO BID #60 tablet 03/07/17 Levothyroxine [Synthroid -] 50 mcg PO ACBK #30 tablet 03/07/17 Metoprolol Succinate 50 mg PO BID 03/05/19 Ramipril 5 mg PO DAILY 03/06/19 Review of Systems - Review of Systems Constitutional: Yes: Diaphoresis, Loss of Appetite, Weakness HEENTM: No: Recent change in vision Respiratory: No: Cough, Orthopnea, Shortness of Breath Cardiac (ROS): Yes: Lightheadedness. No: Chest Pain, Edema ABD/GI: Yes: Nausea, Rectal Bleeding. No: Abdominal Distended Neurological: Yes: Weakness All Other Systems: Reviewed and Negative <Forrest Morgan - Last Filed: 03/15/19 03:27> *Physical Exam - Physical Exam General Appearance: Yes: Appropriately Dressed, Mild Distress HEENT: positive: BARON, Normal Voice, Pale Conjunctivae Neck: positive: Trachea midline, Supple Respiratory/Chest: positive: Lungs Clear, Normal Breath Sounds, Respiratory Distress, Accessory Muscle Use Cardiovascular: positive: Regular Rate, S1, S2, Irregular. negative: JVD, Murmur Gastrointestinal/Abdominal: positive: Normal Bowel Sounds, Soft Rectal Exam: positive: normal rectal tone, other (blood in rectal vault. ) Musculoskeletal: negative: CVA Tenderness Extremity: negative: Coldness, Cyanosis Integumentary: positive: Pale, Cold, Clammy Neurologic: positive: assistant branch operations manager II-XII NML intact, Fully Oriented, Alert, Normal Mood/ Affect, Motor Strength 5/5 <Forrest Morgan - Last Filed: 03/15/19 03:27> - Vital Signs Last Vital Signs Temp Pulse Resp BP Pulse Ox 98.2 F 18 101/40 L 96 03/15/19 05:14 03/15/19 05:14 03/15/19 05:14 03/15/19 05:14 <Julissa Venegas - Last Filed: 03/15/19 05:26> ED Treatment Course - LABORATORY CBC & Chemistry Diagram: 03/15/19 01:15 03/15/19 00:59 - Consult/PCP Time Called: 01:30 Case discussed with consulting physician: Kennedy Martin (made aware, please admit. ) <Forrest Morgan - Last Filed: 03/15/19 03:27> - LABORATORY CBC & Chemistry Diagram: 03/15/19 01:15 03/15/19 00:59 - ADDITIONAL ORDERS Additional order review: Laboratory Results 03/15/19 03/15/19 03/15/19 02:30 01:15 01:15 Sodium Potassium Chloride Carbon Dioxide Anion Gap BUN Creatinine Est GFR (CKD-EPI)AfAm Est GFR (CKD-EPI)NonAf Random Glucose Lactic Acid 1.7 Calcium Total Bilirubin AST ALT Alkaline Phosphatase Creatine Kinase 161 Creatine Kinase Index 1.6 CK-MB (CK-2) 2.7 Troponin I < 0.02 Total Protein Albumin Blood Type A POSITIVE Antibody Screen 03/15/19 03/15/19 01:15 00:59 Sodium 138 Potassium 4.5 Chloride 106 Carbon Dioxide 26 Anion Gap 5 L BUN 33 H Creatinine 1.4 H Est GFR (CKD-EPI)AfAm 61.10 Est GFR (CKD-EPI)NonAf 52.72 Random Glucose 257 H Lactic Acid Calcium 9.2 Total Bilirubin 0.2 AST 14 L ALT 30 Alkaline Phosphatase 17 L Creatine Kinase Creatine Kinase Index CK-MB (CK-2) Troponin I Total Protein 6.4 Albumin 3.6 Blood Type A POSITIVE Antibody Screen Negative 03/15/19 01:15 RBC 4.50 MCV 90.8 MCHC 32.6 RDW 14.2 MPV 11.7 H Neutrophils % 56.9 Lymphocytes % 30.2 Monocytes % 9.3 Eosinophils % 2.5 Basophils % 1.1 - RADIOLOGY Radiology Studies Ordered: Category Date Time Status DUPLEX VASCUL US-1 LEG [US] Stat Ultrasound 03/15/19 01:39 Taken <Julissa Venegas - Last Filed: 03/15/19 05:26> Medical Decision Making - Medical Decision Making 03/15/19 02:34 64 yo M with PMhx of afib( on eliquis ) , DM , HTN, and HLD presents with few hour history of rectal bleeding. Will send for CBC, type and screen , CMP , Lactic acid, EKG and trops. 03/15/19 03:27 * Hgb and vital signs stable. * Will give IVF with NS @ 100ml/hr. * Lactic acid WNL * WIll admit to Med/surg. <Forrest Morgan - Last Filed: 03/15/19 03:27> *DC/Admit/Observation/Transfer - Discharge Dispostion Decision to Admit order: Yes <Forrest Morgan - Last Filed: 03/15/19 03:27> - Discharge Dispostion Decision to Admit order: Yes <Julissa Venegas - Last Filed: 03/15/19 05:26> Diagnosis at time of Disposition: Rectal bleeding - Discharge Dispostion Condition at time of disposition: Guarded - Referrals Referrals: Roman Gardner MD [Primary Care Provider] -
[2019-03-15 01:36] LABS: BASO % 1.1 % (0-2.0); EOS % 2.5 % (0-4.5); HEMATOCRIT 40.9 % (35.4-49); HEMOGLOBIN 13.3 GM/dL (11.7-16.9); LYMPH % 30.2 % (8-40); MCH 29.6 pg (25.7-33.7); MCHC 32.6 g/dl (32.0-35.9); MEAN CELL VOLUME 90.8 fl (80-96); MEAN PLT VOLUME 11.7 fl (7.5-11.1); MONO % 9.3 % (3.8-10.2); NEUT % 56.9 % (42.8-82.8); PLATELET COUNT 189 K/MM3 (134-434); RDW 14.2 % (11.9-15.9); WHITE BLOOD COUNT 11.3 K/mm3 (4.0-10.0)
[2019-03-15 02:15] LABS: ALBUMIN 3.6 g/dl (3.4-5.0); BILIRUBIN,TOTAL 0.2 mg/dL (0.2-1); CALCIUM 9.2 mg/dL (8.5-10.1); CREATININE 1.4 mg/dL (0.55-1.3); POTASSIUM 4.5 mmol/L (3.5-5.1); TOT PROT 6.4 g/dl (6.4-8.2)
--- NOTE | 2019-03-15 02:32 | PDOC ---
Attending Attestation - Resident Resident Name: Forrest Morgan - ED Attending Attestation I have performed the following: I have examined & evaluated the patient, The case was reviewed & discussed with the resident, I agree w/resident's findings & plan - HPI HPI: 03/15/19 02:30 Pt comes with melena and BRBPR that began today, 9 days after polypectomy (6 removed from colon during conoloscopy) - Physicial Exam PE: 03/15/19 02:31 Agree with resident exam. Pt is slightly cold but no diaphoresis; his color is good and he has minimal lower abd pain. He has no flank pain and no fever and he has no tachycardia and no SOB. - Medical Decision Making 03/15/19 03:35 Patient Name: LLOYD BERGERON THIS IS A PRELIMINARY REPORT FROM [facility] DATE OF SERVICE: 2019-03-15 02:12:34 IMAGES: 21 EXAM: DUPLEX VASCULAR US-1 LEG HISTORY: Rule out DVT COMPARISON: None. FINDINGS: There is no DVT in the right lower extremity. IMPRESSION: No DVT. Pt had 2 cardiac ablations for his AFIB; first ablation didn't work; the 2nd ablation done 1 year ago did. Pt doesn't require eliquis, yet he has been taking it for the past 2 years. He needs cards eval and d/c of eliquis. 03/15/19 04:22 Pt will be admitted for GI bleed; GI is aware of the patient. He is stable at this time
[2019-03-15] MEDS: SODIUM CHLORIDE 1,000 ML IV SCH ×2 (03:30→22:08)
--- NOTE | 2019-03-15 04:10 | PN ---
Teaching Attending Note Name of Resident: Arianna Villagomez ATTENDING PHYSICIAN STATEMENT I saw and evaluated the patient. I reviewed the resident's note and discussed the case with the resident. I agree with the resident's findings and plan as documented. SUBJECTIVE: Patiet is a 64 year old man with PMH of Afib (on eliquis ), NIDDM, HTN, hypothyroidism and HLD presents with few hours history of rectal bleeding. He states that SaturdayMarch 06 he had colonoscopy with Dr. Gomes with polypectomy. He was told by he could resume his eliquis on of this week now presents with rectal bleeding this evening. It started at approx 21:00 he had a melena stool. Since then he has had four BM with bright red blood. He has nausea associated with bleed. He feels weak and clammy. Denies chest pain, headache, SOB or abdominal pain. OBJECTIVE: Alert and not orthostatic Vital Signs Period Temp Pulse Resp BP Sys/English Pulse Ox Last 24 Hr 126/82 96 HEENT: No Jaundice, eye redness or discharge, PERRLA, EOMI. Normocephalic, atraumatic. External ears are normal and hearing is grossly intact. No nasal discharge. Neck: Supple, nontender. No palpable adenopathy or thyromegaly. No JVD Chest: Good effort. Clear to auscultation and percussion. Heart: Regular. No S3, rub or murmur Abdomen: Not distended, soft, nontender and no HSM. No rebound or guarding. Normal bowel sounds. Ext: Peripheral pulses intact. No leg edema. Skin: Warm and dry. No petechiae, rash or ecchymosis. Neuro: Alert. Oriented x3. CN 2-12 grossly intact. Sensation grossly intact in all four extremities and DTR are symmetric. Psych: Appropriate mood and affect. Good insight. Current Medications Generic Name Dose Route Start Last Admin Trade Name Freq PRN Reason Stop Dose Admin Sodium Chloride 1,000 mls @ 100 mls/hr 03/15/19 03:30 03/15/19 03:30 Normal Saline - IV 100 mls/hr ASDIR VERONICA Administration Home Medications Medication Instructions Recorded Atorvastatin Ca [Lipitor] 10 mg PO HS 01/17/13 Fenofibrate Nanocrystallized 145 mg PO HS 01/17/13 [Tricor] metFORMIN HCL [Glucophage] 1,000 mg PO BID 01/17/13 Apixaban [Eliquis -] 5 mg PO BID #60 tablet 03/07/17 Levothyroxine [Synthroid -] 50 mcg PO ACBK #30 tablet 03/07/17 Metoprolol Succinate 50 mg PO BID 03/05/19 Ramipril 5 mg PO DAILY 03/06/19 Abnormal Lab Results 03/15/19 03/15/19 00:59 01:15 WBC 11.3 H MPV 11.7 H Anion Gap 5 L BUN 33 H Creatinine 1.4 H Random Glucose 257 H AST 14 L Alkaline Phosphatase 17 L ASSESSMENT AND PLAN: 1. Rectal bleeding - Likely colonic bleeding from site of recent polypectomy. Will hold eliquis and monitor hematocrit q 4 hours and transfuse when clinically indicated. Consult GI and cardiology for guidance on anticoagulation going forward. EKG shows NSR with no significant ST-T wave changes. 2. DM For now, we will hold the home diabetes drugs and implement sliding scale insulin regimen. Provide comprehensive diabetes care with patient teaching and counseling about the importance of adherence to prescribed diabetes regimen, euglycemia, eye care and foot care. 3. DANITA - Likely chiefly due to volume loss, though he has multiple risk factors for CKD. Will get urinalysis, CPK, hydrate with IV NS, monitor urine output and get kidney sonogram. Will avoid nephrotoxic agents such as NSAIDS, aminoglycosides, contrast dyes and certain Alternative medicine products. 4. Obesity Counseled on the risks associated with obesity. Will provide patient all the necessary assistance, counseling and positive reinforcement to facilitate weight loss. Consult product/industry consultant. 5. Hypertension - Restart outpatient antihypertensive drugs when clinically appropriate. Nonpharmacologic measures to control hypertension like weight loss , salt restriction and exercise discussed. 6. DVT prophylaxis - Eliquis on hold. SCDs, TEDs 7. Advance directives - Full code
--- NOTE | 2019-03-15 05:17 | HP ---
CHIEF COMPLAINT: Rectal bleeding PCP: Dr. Gardner HISTORY OF PRESENT ILLNESS: Pt. is a 64 y.o. M w/ PMHx. of A.Fib/A.flutter( s/p cardioversion x 2, s/p ablation x2, on Eliquis), NIDDM, HTN, and HLD, presents with rectal bleeding since 11pm yesterday. Pt. states that the first 3 bowel movements were mixed with normal formed stool at home and that the 2 subsequent BMs, were bright red blood in the ER. Pt. states that he had a colonoscopy on March [address] Gomes where 6 polyps were removed. Pt. was instructed to resume his Eliguis on the Saturday after the procedure for a total of 7 days being off Eliquis. Pt. denies nausea, vomiting, shortness of breath, chest pain , lightheadedness, dizziness, numbness/tingling in the extremities or any other symptoms at this time. ER course was notable for: (1) CBC, CMP, LA, Trop (2) EKG, T&S, NS @ 100 (3) Recent Travel: No PAST MEDICAL HISTORY: As above PAST SURGICAL HISTORY: As above, CCY() Social History: Smoking: denies, never Alcohol: denies, occasional sip Drugs: denies, never Family History: Mother at 83(threw up blood) Allergies No Known Allergies Allergy (Verified 03/04/17 16:07) HOME MEDICATIONS: Home Medications Medication Instructions Recorded Atorvastatin Ca [Lipitor] 10 mg PO HS 01/17/13 Fenofibrate Nanocrystallized 145 mg PO HS 01/17/13 [Tricor] metFORMIN HCL [Glucophage] 1,000 mg PO BID 01/17/13 Apixaban [Eliquis -] 5 mg PO BID #60 tablet 03/07/17 Levothyroxine [Synthroid -] 50 mcg PO ACBK #30 tablet 03/07/17 Metoprolol Succinate 50 mg PO BID 03/05/19 Ramipril 5 mg PO DAILY 03/06/19 REVIEW OF SYSTEMS As above PHYSICAL EXAMINATION Vital Signs - 24 hr 03/15/19 00:15 Blood Pressure 126/82 O2 Sat by Pulse 96 Oximetry (%) GENERAL: Awake, alert, and fully oriented, in no acute distress. HEAD: Normal with no signs of trauma. EYES: extraocular movements intact, sclera anicteric, conjunctiva clear. EARS, NOSE, THROAT: Ears normal, nares patent, oropharynx clear without exudates. Moist mucous membranes. LUNGS: Breath sounds equal, clear to auscultation bilaterally. No wheezes, and no crackles. No accessory muscle use. HEART: Regular rate and rhythm, normal S1 and S2 without murmur ABDOMEN: Soft, LLQ, RLQ and R flank/hypochondrium tenderness, not distended, hypoactive bowel sounds, no guarding, no rebound, MUSCULOSKELETAL: No CVA tenderness. UPPER EXTREMITIES: warm, well-perfused. No cyanosis. No clubbing. No peripheral edema. LOWER EXTREMITIES: 2+ dorsal pedal pulses, warm, well-perfused. No calf tenderness. Trace edema. NEUROLOGICAL: Normal speech. PSYCHIATRIC: Cooperative. Good eye contact. Appropriate mood and affect. SKIN: Warm, dry, normal turgor, no rashes or lesions noted, normal capillary refill. Laboratory Results - last 24 hr 03/15/19 03/15/19 03/15/19 00:59 01:15 01:15 WBC 11.3 H RBC 4.50 Hgb 13.3 Hct 40.9 MCV 90.8 MCH 29.6 MCHC 32.6 RDW 14.2 Plt Count 189 D MPV 11.7 H Absolute Neuts (auto) 6.4 Neutrophils % 56.9 Lymphocytes % 30.2 Monocytes % 9.3 Eosinophils % 2.5 Basophils % 1.1 Nucleated RBC % 0 Sodium 138 Potassium 4.5 Chloride 106 Carbon Dioxide 26 Anion Gap 5 L BUN 33 H Creatinine 1.4 H Est GFR (CKD-EPI)AfAm 61.10 Est GFR (CKD-EPI)NonAf 52.72 Random Glucose 257 H Lactic Acid Calcium 9.2 Total Bilirubin 0.2 AST 14 L ALT 30 Alkaline Phosphatase 17 L Creatine Kinase Creatine Kinase Index CK-MB (CK-2) Troponin I Total Protein 6.4 Albumin 3.6 Blood Type A POSITIVE Antibody Screen Negative 03/15/19 03/15/19 03/15/19 01:15 01:15 02:30 WBC RBC Hgb Hct MCV MCH MCHC RDW Plt Count MPV Absolute Neuts (auto) Neutrophils % Lymphocytes % Monocytes % Eosinophils % Basophils % Nucleated RBC % Sodium Potassium Chloride Carbon Dioxide Anion Gap BUN Creatinine Est GFR (CKD-EPI)AfAm Est GFR (CKD-EPI)NonAf Random Glucose Lactic Acid 1.7 Calcium Total Bilirubin AST ALT Alkaline Phosphatase Creatine Kinase 161 Creatine Kinase Index 1.6 CK-MB (CK-2) 2.7 Troponin I < 0.02 Total Protein Albumin Blood Type A POSITIVE Antibody Screen ASSESSMENT/PLAN: Pt. is a 64 y.o. M w/ PMHx. of A.Fib/A.flutter (s/p cardioversion x 2, s/p ablation x2, on Eliquis), NIDDM, HTN, and HLD, presents with rectal bleeding since 11 pm yesterday. # GI Bleed- likely lower GI Pt. recently had colonoscopy, had many polyps and recently resumed Eliquis HgB: 13.3 (Baseline ~14) Q4H CBC No indication for Protonix at this time as bleeding source is likely GI VS Q4H GI Consult (Dr. Gomes) appreciated Elevated WBC count, trend and monitor for signs of sepsis #AFib/AFlutter c/w Toprol 50mg BID hold Eliquis in the setting of acute GI bleed f/u Dr. Lucero as to why Pt. still need Toprol if rate controlled by ablation and cardioversion. #DANITA BUN: 33, Cr. :1.4 indicating pre-renal pathology likely 2/2 to acute blood loss. c/w IVF trend BMP avoid nephrotoxic agents. #NIDDM Hold oral agent- Metformin ISS ACHS BGM ACHS #FEN NS @ 100ml/hr monitor electrolyte and replete as needed NPO #DVT Ppx. SCDs and TEDs- hold AC in setting of GI Bleed
[2019-03-15] MEDS ORDERED: LEVOTHYROXINE NA 25 MCG TABLET (FP) ONE (07:03)
[2019-03-15] MEDS: LEVOTHYROXINE NA 50 MCG TABLET (FP) PO SCH (07:08)
[2019-03-15] MEDS ORDERED: INSULIN (NOVOLOG) ASPART 100 UNITS/ML 10ML VIAL ONE (07:12)
[2019-03-15] MEDS: INSULIN SLIDING SCALE (NOVOLOG) 1 VIAL SQ SCH ×4 (07:18→22:06)
--- NOTE | 2019-03-15 09:34 | EKG ---
Test Reason : Blood Pressure : / mmHG Vent. Rate : 079 BPM Atrial Rate : 079 BPM P-R Int : 164 ms QRS Dur : 102 ms QT Int : 390 ms P-R-T Axes : 031 -34 026 degrees QTc Int : 447 ms NORMAL SINUS RHYTHM LEFT AXIS DEVIATION ABNORMAL ECG WHEN COMPARED WITH ECG OF 22-MAY-2017 12:25, SINUS RHYTHM HAS REPLACED ATRIAL FLUTTER ST NO LONGER ELEVATED IN INFERIOR LEADS NONSPECIFIC T WAVE ABNORMALITY NO LONGER EVIDENT IN INFERIOR LEADS NONSPECIFIC T WAVE ABNORMALITY NO LONGER EVIDENT IN ANTEROLATERAL LEADS QT HAS LENGTHENED Confirmed by ALEX HENAO, KARRIE ([id number]) on 03/15/2019 9:34:20 AM Referred By: Katina LINCOLN Confirmed By:KARRIE JOHNSON MD
[2019-03-15 09:39] LABS: HEMATOCRIT 33.9 % (35.4-49); HEMOGLOBIN 11.2 GM/dL (11.7-16.9); MEAN CELL VOLUME 90.9 fl (80-96); MEAN PLT VOLUME 11.2 fl (7.5-11.1); PLATELET COUNT 147 K/MM3 (134-434); RBC 3.72 M/mm3 (4.00-5.60); RDW 14.4 % (11.9-15.9); WHITE BLOOD COUNT 8.5 K/mm3 (4.0-10.0)
[2019-03-15 09:57] LABS: MAGNESIUM 1.9 mg/dL (1.8-2.4); PHOSPHOROUS 2.9 mg/dL (2.5-4.9); POTASSIUM 4.2 mmol/L (3.5-5.1)
[2019-03-15] MEDS ORDERED: RAMIPRIL 5 MG CAPSULE (FP) PO SCH (10:00)
--- NOTE | 2019-03-15 10:09 | CON.GI ---
Consult Consult Specialty:: GI Reason for Consultation:: rectal bleeding - History of Present Illness Chief Complaint: rectal bleeding yesterday History of Present Illness: 64 y.o. M, had colonoscopy with polypectomies 03/06/19, resumed Eliquis on 03/10, noted rectal bleeding multiple times yesterday. Last BM approximately 10 hours ago. Hgb dropped from 13 to 11: CBC WBC 8.5 K/mm3 (4.0-10.0) 03/15/19 08:28 RBC 3.72 M/mm3 (4.00-5.60) L 03/15/19 08:28 Hgb 11.2 GM/dL (11.7-16.9) L 03/15/19 08:28 Hct 33.9 % (35.4-49) L D 03/15/19 08:28 MCV 90.9 fl (80-96) 03/15/19 08:28 MCH 30.0 pg (25.7-33.7) 03/15/19 08:28 MCHC 33.0 g/dl (32.0-35.9) 03/15/19 08:28 RDW 14.4 % (11.9-15.9) 03/15/19 08:28 Plt Count 147 K/MM3 (134-434) D 03/15/19 08:28 MPV 11.2 fl (7.5-11.1) H 03/15/19 08:28 Absolute Neuts (auto) 6.4 K/mm3 (1.5-8.0) 03/15/19 01:15 Neutrophils % 56.9 % (42.8-82.8) 03/15/19 01:15 Lymphocytes % 30.2 % (8-40) 03/15/19 01:15 Monocytes % 9.3 % (3.8-10.2) 03/15/19 01:15 Eosinophils % 2.5 % (0-4.5) 03/15/19 01:15 Basophils % 1.1 % (0-2.0) 03/15/19 01:15 Nucleated RBC % 0 % (0-0) 03/15/19 01:15 Feels comfortable, no pain today. He has a history of AFib and had an ablation last year. As far as he knows he has had a regular rhythm for the past year. - History Source History Provided By: Patient, Medical Record Limitations to Obtaining History: No Limitations - Past Medical History Cardio/Vascular: Yes: AFIB (in past, s/p ablation one year ago), HTN, Hyperlipdemia Endocrine: Yes: Diabetes Mellitus, Hypothyroidism - Past Surgical History Past Surgical History: Yes: Tonsillectomy - Alcohol/Substance Use Hx Alcohol Use: No History of Substance Use: reports: None - Smoking History Smoking history: Former smoker Have you smoked in the past 12 months: No Aproximately how many cigarettes per day: 0 If you are a former smoker, when did you quit?: 45 YRS AGO - Social History ADL: Independent History of Recent Travel: No Home Medications - Allergies Allergies/Adverse Reactions: Allergies Allergy/AdvReac Type Severity Reaction Status Date / Time No Known Allergies Allergy Verified 03/04/17 16:07 - Home Medications Home Medications: Ambulatory Orders Atorvastatin Ca [Lipitor] 10 mg PO HS MDD 10 01/17/13 Fenofibrate Nanocrystallized [Tricor] 145 mg PO HS 01/17/13 metFORMIN HCL [Glucophage] 1,000 mg PO BID 01/17/13 Apixaban [Eliquis -] 5 mg PO BID #60 tablet 03/07/17 Levothyroxine [Synthroid -] 50 mcg PO ACBK #30 tablet 03/07/17 Metoprolol Succinate 50 mg PO BID 03/05/19 Ramipril 5 mg PO DAILY 03/06/19 Home Medications (free text): last dose of Eliquis 03/14/19 a.m. Family Disease History - Family Disease History Family Disease History: Diabetes: Father Physical Exam-GI Vital Signs: Vital Signs Temperature 98.3 F 03/15/19 06:27 Pulse Rate 78 03/15/19 08:52 Respiratory Rate 03/15/19 08:52 Blood Pressure 126/73 03/15/19 08:52 O2 Sat by Pulse Oximetry (%) 99 03/15/19 08:52 ...Rectal Exam: Yes: Deferred Labs: CBC, BMP 03/15/19 08:28 03/15/19 09:18 Problem List - Problems (1) Rectal bleeding Code(s): K62.5 - HEMORRHAGE OF ANUS AND RECTUM Assessment/Plan Rectal bleed 8 days after colonoscopy with polypectomy. Most likely this represents the falling off of either the scab or the clip, if one was used. It is not clear that he actually needs Eliquis any more as he is certainly in a regular rhythm now and believes he has been in sinus rhythm since his 2nd ablation last year. Would hold Eliquis, begin clear liquids today, and discharge tomorrow if no further drop in Hgb. Patient warned that his next bowel movement will probably have some dried blood in it.
[2019-03-15 10:19] LABS: INR 1.17 (0.83-1.09); PROTHROMBIN TIME (PATIENT) 13.8 SEC (9.7-13.0)
[2019-03-15 10:51] VITALS: BMI 35.3
--- NOTE | 2019-03-15 12:08 | CON.CARD ---
Cardiology Consult (text) - Consultation Consultation Note: CC: rectal bleed hpi: 64 year old male with pmh of HTN, HLD, single kidney (congenital), hypothyroid, dm, hld, afib s/p ablation 2018, here with rectal bleed. About a week ago had foc with polypectomy. Resumed eliquis few days after as per GI rec. Then yesterday had several bloody bm's. No cp sob palps dizzy loc pnd orthopnea le edema, abd pain. Sees me for cardio. PMhx: per hpi Surgical Hx: adenoidectomy, tonsillectomy, cholecystectomy Social Hx: never smoker, minimal alcohol use. no illicits fam hx: father with prior arrhythmia requiring cardioversion ros: per hpi; all others normal Home Medications Medication Instructions Recorded Atorvastatin Ca [Lipitor] 10 mg PO HS MDD 10 01/17/13 Fenofibrate Nanocrystallized 145 mg PO HS 01/17/13 [Tricor] metFORMIN HCL [Glucophage] 1,000 mg PO BID 01/17/13 Apixaban [Eliquis -] 5 mg PO BID #60 tablet 03/07/17 Levothyroxine [Synthroid -] 50 mcg PO ACBK #30 tablet 03/07/17 Metoprolol Succinate 50 mg PO BID 03/05/19 Ramipril 5 mg PO DAILY 03/06/19 Vital Signs Period Temp Pulse Resp BP Sys/English Pulse Ox Last 24 Hr 97.7 F-98.3 F 70-88 18-20 101-126/40-82 96-99 nad no jvd rrr s1s2 no mrg cta bl nl eff aao3 no le e/c/c abd nt nd pos bs no jaundice diaphoresis pos dp pt no carotid bruits Laboratory Last Values WBC 8.5 K/mm3 (4.0-10.0) 03/15/19 08:28 RBC 3.72 M/mm3 (4.00-5.60) L 03/15/19 08:28 Hgb 11.2 GM/dL (11.7-16.9) L 03/15/19 08:28 Hct 33.9 % (35.4-49) L D 03/15/19 08:28 MCV 90.9 fl (80-96) 03/15/19 08:28 MCH 30.0 pg (25.7-33.7) 05/12/19 08:28 MCHC 33.0 g/dl (32.0-35.9) 03/15/19 08:28 RDW 14.4 % (11.9-15.9) 03/15/19 08:28 Plt Count 147 K/MM3 (134-434) D 03/15/19 08:28 MPV 11.2 fl (7.5-11.1) H 03/15/19 08:28 Absolute Neuts (auto) 6.4 K/mm3 (1.5-8.0) 03/15/19 01:15 Neutrophils % 56.9 % (42.8-82.8) 03/15/19 01:15 Lymphocytes % 30.2 % (8-40) 03/15/19 01:15 Monocytes % 9.3 % (3.8-10.2) 03/15/19 01:15 Eosinophils % 2.5 % (0-4.5) 03/15/19 01:15 Basophils % 1.1 % (0-2.0) 03/15/19 01:15 Nucleated RBC % 0 % (0-0) 03/15/19 01:15 PT with INR 13.80 SEC (9.7-13.0) H 03/15/19 09:18 INR 1.17 (0.83-1.09) H 03/15/19 09:18 Sodium 141 mmol/L (136-145) 03/15/19 09:18 Potassium 4.2 mmol/L (3.5-5.1) 03/15/19 09:18 Chloride 111 mmol/L (98-107) H 03/15/19 09:18 Carbon Dioxide 26 mmol/L (21-32) 03/15/19 09:18 Anion Gap 4 MMOL/L (8-16) L 03/15/19 09:18 BUN 26 mg/dL (7-18) H 03/15/19 09:18 Creatinine 1.0 mg/dL (0.55-1.3) 03/15/19 09:18 Est GFR (CKD-EPI)AfAm 91.78 03/15/19 09:18 Est GFR (CKD-EPI)NonAf 79.19 03/15/19 09:18 POC Glucometer 176 UNITS (80-120) 03/15/19 07:05 Random Glucose 141 mg/dL (74-106) H 03/15/19 09:18 Lactic Acid 1.7 mmol/L (0.4-2.0) 03/15/19 01:15 Calcium 8.0 mg/dL (8.5-10.1) L 03/15/19 09:18 Phosphorus 2.9 mg/dL (2.5-4.9) 03/15/19 09:18 Magnesium 1.9 mg/dL (1.8-2.4) 03/15/19 09:18 Total Bilirubin 0.2 mg/dL (0.2-1) 03/15/19 00:59 AST 14 U/L (15-37) L 03/15/19 00:59 ALT 30 U/L (13-61) 03/15/19 00:59 Alkaline Phosphatase 17 U/L (45-117) L 03/15/19 00:59 Creatine Kinase 161 U/L (26-308) 03/15/19 02:30 Creatine Kinase Index 1.6 % (0.0-5.0) 03/15/19 02:30 CK-MB (CK-2) 2.7 ng/mL (0.5-3.6) 03/15/19 02:30 Troponin I < 0.02 ng/ml (0.00-0.05) 03/15/19 02:30 Total Protein 6.4 g/dl (6.4-8.2) 03/15/19 00:59 Albumin 3.6 g/dl (3.4-5.0) 03/15/19 00:59 Blood Type A POSITIVE 03/15/19 01:15 Antibody Screen Negative 03/15/19 01:15 ecg: sr nl intervals no ischemic changes echo 03/2017: limited study: mild conc lvh, ?lvef, ?rv size/fcn, mod mr, mild tr, mild pr, mild ao root dil, small pericardial eff, no tamponade a/p: 64 year old male with pmh of HTN, HLD, single kidney (congenital), hypothyroid, dm, hld, afib s/p ablation 2017, here with rectal bleed. GIB: -s/p recent FOC/polypectomy -hgb stable -ok to hold eliquis for now -GI following, no cardiac contraindications to repeat FOC if needed afib/aflutter: -s/p ablation 2018, remains in SR -has been on eliquis, holding as above HTN: -cont current meds HL: -cont statin
--- NOTE | 2019-03-15 13:52 | PN ---
Physical Exam: SUBJECTIVE: Patient seen and examined, no further bleed events since 2 episodes on admission. reported some dizziness and diaphoresis with bloody BM in ED, none since, denies any nausea, vomiting, abdominal pain. OBJECTIVE: Vital Signs Period Temp Pulse Resp BP Sys/Enlgish Pulse Ox Last 24 Hr 97.7 F-98.3 F 70-88 18-20 101-126/40-82 96-99 Intake & Output 03/12/19 03/13/19 03/14/19 03/15/19 23:59 23:59 23:59 23:59 Weight 253 lb 8 oz GENERAL: sitting in bed in no acute distress Chest: CTAB, no rales or wheezing CVS:S1S2 regular Chest: CTAB, no rales or wheezing Abdomen:SOft, obese, mild LLQ tenderness, no voluntary or involuntary guarding or rigidity, positive bowel sounds Extremities: no edema Psych: pleasant, co-operative Laboratory Results - last 24 hr 03/15/19 03/15/19 03/15/19 00:59 01:15 01:15 WBC 11.3 H RBC 4.50 Hgb 13.3 Hct 40.9 MCV 90.8 MCH 29.6 MCHC 32.6 RDW 14.2 Plt Count 189 D MPV 11.7 H Absolute Neuts (auto) 6.4 Neutrophils % 56.9 Lymphocytes % 30.2 Monocytes % 9.3 Eosinophils % 2.5 Basophils % 1.1 Nucleated RBC % 0 PT with INR INR Sodium 138 Potassium 4.5 Chloride 106 Carbon Dioxide 26 Anion Gap 5 L BUN 33 H Creatinine 1.4 H Est GFR (CKD-EPI)AfAm 61.10 Est GFR (CKD-EPI)NonAf 52.72 POC Glucometer Random Glucose 257 H Lactic Acid Calcium 9.2 Phosphorus Magnesium Total Bilirubin 0.2 AST 14 L ALT 30 Alkaline Phosphatase 17 L Creatine Kinase Creatine Kinase Index CK-MB (CK-2) Troponin I Total Protein 6.4 Albumin 3.6 Blood Type A POSITIVE Antibody Screen Negative 03/15/19 03/15/19 03/15/19 01:15 01:15 02:30 WBC RBC Hgb Hct MCV MCH MCHC RDW Plt Count MPV Absolute Neuts (auto) Neutrophils % Lymphocytes % Monocytes % Eosinophils % Basophils % Nucleated RBC % PT with INR INR Sodium Potassium Chloride Carbon Dioxide Anion Gap BUN Creatinine Est GFR (CKD-EPI)AfAm Est GFR (CKD-EPI)NonAf POC Glucometer Random Glucose Lactic Acid 1.7 Calcium Phosphorus Magnesium Total Bilirubin AST ALT Alkaline Phosphatase Creatine Kinase 161 Creatine Kinase Index 1.6 CK-MB (CK-2) 2.7 Troponin I < 0.02 Total Protein Albumin Blood Type A POSITIVE Antibody Screen 03/15/19 03/15/19 03/15/19 07:05 08:28 09:18 WBC 8.5 RBC 3.72 L Hgb 11.2 L Hct 33.9 L D MCV 90.9 MCH 30.0 MCHC 33.0 RDW 14.4 Plt Count 147 D MPV 11.2 H Absolute Neuts (auto) Neutrophils % Lymphocytes % Monocytes % Eosinophils % Basophils % Nucleated RBC % PT with INR 13.80 H INR 1.17 H Sodium Potassium Chloride Carbon Dioxide Anion Gap BUN Creatinine Est GFR (CKD-EPI)AfAm Est GFR (CKD-EPI)NonAf POC Glucometer 176 Random Glucose Lactic Acid Calcium Phosphorus Magnesium Total Bilirubin AST ALT Alkaline Phosphatase Creatine Kinase Creatine Kinase Index CK-MB (CK-2) Troponin I Total Protein Albumin Blood Type Antibody Screen 03/15/19 03/15/19 09:18 12:19 WBC RBC Hgb Hct MCV MCH MCHC RDW Plt Count MPV Absolute Neuts (auto) Neutrophils % Lymphocytes % Monocytes % Eosinophils % Basophils % Nucleated RBC % PT with INR INR Sodium 141 Potassium 4.2 Chloride 111 H Carbon Dioxide 26 Anion Gap 4 L BUN 26 H Creatinine 1.0 Est GFR (CKD-EPI)AfAm 91.78 Est GFR (CKD-EPI)NonAf 79.19 POC Glucometer 132 Random Glucose 141 H Lactic Acid Calcium 8.0 L Phosphorus 2.9 Magnesium 1.9 Total Bilirubin AST ALT Alkaline Phosphatase Creatine Kinase Creatine Kinase Index CK-MB (CK-2) Troponin I Total Protein Albumin Blood Type Antibody Screen Active Medications Generic Name Dose Route Start Last Admin Trade Name Freq PRN Reason Stop Dose Admin Atorvastatin Calcium 10 mg 03/15/19 22:00 Lipitor - PO HS VERONICA Fenofibric Acid 145 mg 03/15/19 22:00 Trilipix - PO HS VERONICA Sodium Chloride 1,000 mls @ 100 mls/hr 03/15/19 03:30 03/15/19 03:30 Normal Saline - IV 100 mls/hr ASDIR VERONICA Administration Insulin Aspart 1 vial 03/15/19 07:00 03/15/19 13:33 Novolog Vial Sliding Scale - SQ Not Given ACHS [facility] Protocol Levothyroxine Sodium 50 mcg 03/15/19 07:00 03/15/19 07:08 Synthroid - PO 50 mcg ACBK VERONICA Administration Metoprolol Succinate 50 mg 03/16/19 10:00 Toprol Xl - PO BID [facility] Home Medications Medication Instructions Recorded Atorvastatin Ca [Lipitor] 10 mg PO HS MDD 10 01/17/13 Fenofibrate Nanocrystallized 145 mg PO HS 01/17/13 [Tricor] metFORMIN HCL [Glucophage] 1,000 mg PO BID 01/17/13 Apixaban [Eliquis -] 5 mg PO BID #60 tablet 03/07/17 Levothyroxine [Synthroid -] 50 mcg PO ACBK #30 tablet 03/07/17 Metoprolol Succinate 50 mg PO BID 03/05/19 Ramipril 5 mg PO DAILY 03/06/19 ASSESSMENT/PLAN: 64 yom with PMHx of afib s/p ablation in 2018, HTN, HLD, congenital solitary kidney, recent colonoscopy with polypectomy, resumed eliquis 4 days later admitted with hematochezia. -Lower gastrointestinal haemorrhage, suspect from recently polypectomy (?Clip vs scab) compounded by anti-coagulation -Acute blood loss anemia, due to above -Afib s/p ablation 2018 -HTN -HLD -Congenital solitary kidney Plan: GI input appreciate. PO clears. monitor h/h closely. Hold eliquis. Hold further anti-hypertensives today, resume based on clinical course. Cardiology input noted. Hold metformin. ISS, diabetic diet when able DVTPPX SCDs Dispo in 24 hours if no further bleed or new events. Plan discussed with patient in detail, all questions answered. Visit type - Emergency Visit Emergency Visit: Yes ED Registration Date: 03/15/19 Care time: The patient presented to the Emergency Department on the above date and was hospitalized for further evaluation of their emergent condition. - New Patient This patient is new to me today: Yes Date on this admission: 03/15/19 - Critical Care Critical Care patient: No - Discharge Referral Referred to [facility] Med P.C.: No
[2019-03-15 15:31] LABS: HEMATOCRIT 34.1 % (35.4-49); HEMOGLOBIN 11.4 GM/dL (11.7-16.9); MCH 30.6 pg (25.7-33.7); MCHC 33.4 g/dl (32.0-35.9); MEAN CELL VOLUME 91.5 fl (80-96); MEAN PLT VOLUME 11.3 fl (7.5-11.1); PLATELET COUNT 141 K/MM3 (134-434); RBC 3.73 M/mm3 (4.00-5.60); RDW 14.5 % (11.9-15.9); WHITE BLOOD COUNT 8.4 K/mm3 (4.0-10.0)
[2019-03-15] MEDS ORDERED: ATORVASTATIN CA 10 MG TABLET (FP) PO SCH (22:00)
[2019-03-15] MEDS ORDERED: FENOFIBRIC ACID 135 MG CAP PO SCH (22:00)
[2019-03-16] MEDS: INSULIN SLIDING SCALE (NOVOLOG) 1 VIAL SQ SCH ×2 (06:18→12:09)
[2019-03-16] MEDS: LEVOTHYROXINE NA 50 MCG TABLET (FP) PO SCH (06:19)
[2019-03-16 06:44] LABS: HEMATOCRIT 31.6 % (35.4-49); HEMOGLOBIN 10.5 GM/dL (11.7-16.9); MCH 30.4 pg (25.7-33.7); MCHC 33.4 g/dl (32.0-35.9); MEAN CELL VOLUME 90.9 fl (80-96); MEAN PLT VOLUME 11.4 fl (7.5-11.1); PLATELET COUNT 128 K/MM3 (134-434); RBC 3.47 M/mm3 (4.00-5.60); RDW 14.4 % (11.9-15.9); WHITE BLOOD COUNT 7.3 K/mm3 (4.0-10.0)
[2019-03-16 07:08] LABS: CALCIUM 8.1 mg/dL (8.5-10.1); CREATININE 0.8 mg/dL (0.55-1.3); MAGNESIUM 1.9 mg/dL (1.8-2.4); POTASSIUM 4.2 mmol/L (3.5-5.1)
[2019-03-16] MEDS: SODIUM CHLORIDE 1,000 ML IV SCH (08:40)
--- NOTE | 2019-03-16 11:26 | PN ---
Teaching Attending Note Name of Resident: Damon Yen ATTENDING PHYSICIAN STATEMENT I saw and evaluated the patient. I reviewed the resident's note and discussed the case with the resident. I agree with the resident's findings and plan as documented with exceptions below. SUBJECTIVE: Patient seen and examined. no further blood stools or BM. Tolerating clears well. OBJECTIVE: Vital Signs Period Temp Pulse Resp BP Sys/English Pulse Ox Last 24 Hr 97.7 F-98.1 F 65-71 18-20 123-133/71-78 99 Intake & Output 03/13/19 03/14/19 03/15/19 03/16/19 23:59 23:59 23:59 23:59 Intake Total 900 Balance 900 Weight 253 lb 8 oz General: lying in bed in no acute distress Chest: CTAB, no rales or wheezing Abdomen:Soft, NT, ND, positive bowel sounds Extremities: no edema Home Medications Medication Instructions Recorded Atorvastatin Ca [Lipitor] 10 mg PO HS MDD 10 01/17/13 Fenofibrate Nanocrystallized 145 mg PO 01/17/13 [Tricor] metFORMIN HCL [Glucophage] 1,000 mg PO BIDAC 01/17/13 Apixaban [Eliquis -] 5 mg PO BID #60 tablet 03/07/17 Levothyroxine [Synthroid -] 50 mcg PO ACBK #30 tablet 03/07/17 Metoprolol Succinate 50 mg PO BID 03/05/19 Ramipril 5 mg PO DAILY 03/06/19 Active Medications Atorvastatin Calcium (Lipitor -) 10 mg PO [facility] Last Admin: 03/15/19 22:07 Dose: 10 mg Fenofibric Acid (Trilipix -) 145 mg PO [facility] Last Admin: 03/15/19 22:22 Dose: Not Given Insulin Aspart (Novolog Vial Sliding Scale -) 1 vial SQ [facility]; Protocol Last Admin: 03/16/19 06:18 Dose: Not Given Levothyroxine Sodium (Synthroid -) 50 mcg PO ACBK [facility] Last Admin: 03/16/19 06:19 Dose: 50 mcg Metoprolol Succinate (Toprol Xl -) 50 mg PO BID [facility] Last Admin: 03/16/19 11:02 Dose: 50 mg Laboratory Results - last 24 hr 03/15/19 03/15/19 03/15/19 12:19 15:01 16:48 WBC 8.4 RBC 3.73 L Hgb 11.4 L Hct 34.1 L MCV 91.5 MCH 30.6 MCHC 33.4 RDW 14.5 Plt Count 141 MPV 11.3 H Sodium Potassium Chloride Carbon Dioxide Anion Gap BUN Creatinine Est GFR (CKD-EPI)AfAm Est GFR (CKD-EPI)NonAf POC Glucometer 132 130 Random Glucose Calcium Magnesium 03/15/19 03/16/19 03/16/19 20:29 05:30 05:30 WBC 7.3 RBC 3.47 L Hgb 10.5 L Hct 31.6 L MCV 90.9 MCH 30.4 MCHC 33.4 RDW 14.4 Plt Count 128 L MPV 11.4 H Sodium 141 Potassium 4.2 Chloride 110 H Carbon Dioxide 27 Anion Gap 4 L BUN 17 Creatinine 0.8 Est GFR (CKD-EPI)AfAm 109.42 Est GFR (CKD-EPI)NonAf 94.41 POC Glucometer 139 Random Glucose 124 H Calcium 8.1 L Magnesium 1.9 03/16/19 06:18 WBC RBC Hgb Hct MCV MCH MCHC RDW Plt Count MPV Sodium Potassium Chloride Carbon Dioxide Anion Gap BUN Creatinine Est GFR (CKD-EPI)AfAm Est GFR (CKD-EPI)NonAf POC Glucometer 127 Random Glucose Calcium Magnesium ASSESSMENT AND PLAN: 64 yom with PMHx of afib s/p ablation in 2018, HTN, HLD, congenital solitary kidney, recent colonoscopy with polypectomy, resumed eliquis 4 days later admitted with hematochezia. -Lower gastrointestinal haemorrhage, suspect from recently polypectomy (?Clip vs scab) compounded by anti-coagulation -Acute blood loss anemia, due to above -Afib s/p ablation 2018 -HTN -HLD -Congenital solitary kidney Plan: h.h downtrending, suspect equilibrating from recent blood loss compounded by hemodilution from IVF. NO gross evidence of bleed, hemodynamics stable. Repeat CBC this afternoon, advance diet if stable. GI input noted, Hold eliquis, will defer resumption to cardiology outpatient. Resume anti-HTN as pO intake improves. ISS, diabetic diet when able DVTPPX SCDs dispo d/c later today if h/h stable, tolerating diet well and no new events. Plan discussed with patient and nursing in detail, all questions answered.
[2019-03-16 12:55] LABS: EOS % 3.1 % (0-4.5); HEMATOCRIT 35.6 % (35.4-49); HEMOGLOBIN 11.7 GM/dL (11.7-16.9); LYMPH % 31.3 % (8-40); MCH 30.3 pg (25.7-33.7); MCHC 32.8 g/dl (32.0-35.9); MEAN CELL VOLUME 92.6 fl (80-96); MEAN PLT VOLUME 11.5 fl (7.5-11.1); MONO % 6.5 % (3.8-10.2); NEUT % 58.1 % (42.8-82.8); PLATELET COUNT 136 K/MM3 (134-434); RBC 3.85 M/mm3 (4.00-5.60); RDW 14.5 % (11.9-15.9); WHITE BLOOD COUNT 6.7 K/mm3 (4.0-10.0)
--- NOTE | 2019-03-16 14:41 | DS ---
Physical Exam: SUBJECTIVE: Patient seen and examined at bedside. Feels well. No complaints today. OBJECTIVE: Vital Signs Temperature 98 F 03/16/19 06:00 Pulse Rate 65 03/16/19 06:00 Respiratory Rate 20 03/16/19 06:00 Blood Pressure 133/78 03/16/19 06:00 O2 Sat by Pulse Oximetry (%) 99 03/15/19 21:00 PHYSICAL EXAM GENERAL: The patient is awake, alert, and fully oriented, in no acute distress.. NECK: Trachea midline, full range of motion, supple. LUNGS: Breath sounds equal, clear to auscultation bilaterally HEART: Regular rate and rhythm, S1, S2 ABDOMEN: Soft, nontender, nondistended, normoactive bowel sounds. NEUROLOGICAL: Cranial nerves II through XII grossly intact. Normal speech, gait not observed. PSYCH: Normal mood, normal affect. SKIN: Warm, dry LABS Laboratory Results - last 24 hr 03/15/19 03/15/19 03/15/19 15:01 16:48 20:29 WBC 8.4 RBC 3.73 L Hgb 11.4 L Hct 34.1 L MCV 91.5 MCH 30.6 MCHC 33.4 RDW 14.5 Plt Count 141 MPV 11.3 H Absolute Neuts (auto) Neutrophils % Lymphocytes % Monocytes % Eosinophils % Basophils % Nucleated RBC % Sodium Potassium Chloride Carbon Dioxide Anion Gap BUN Creatinine Est GFR (CKD-EPI)AfAm Est GFR (CKD-EPI)NonAf POC Glucometer 130 139 Random Glucose Calcium Magnesium 03/16/19 03/16/19 03/16/19 05:30 05:30 06:18 WBC 7.3 RBC 3.47 L Hgb 10.5 L Hct 31.6 L MCV 90.9 MCH 30.4 MCHC 33.4 RDW 14.4 Plt Count 128 L MPV 11.4 H Absolute Neuts (auto) Neutrophils % Lymphocytes % Monocytes % Eosinophils % Basophils % Nucleated RBC % Sodium 141 Potassium 4.2 Chloride 110 H Carbon Dioxide 27 Anion Gap 4 L BUN 17 Creatinine 0.8 Est GFR (CKD-EPI)AfAm 109.42 Est GFR (CKD-EPI)NonAf 94.41 POC Glucometer 127 Random Glucose 124 H Calcium 8.1 L Magnesium 1.9 03/16/19 03/16/19 11:47 12:15 WBC 6.7 RBC 3.85 L Hgb 11.7 Hct 35.6 MCV 92.6 MCH 30.3 MCHC 32.8 RDW 14.5 Plt Count 136 MPV 11.5 H Absolute Neuts (auto) 3.9 Neutrophils % 58.1 Lymphocytes % 31.3 Monocytes % 6.5 Eosinophils % 3.1 Basophils % 1.0 Nucleated RBC % 0 Sodium Potassium Chloride Carbon Dioxide Anion Gap BUN Creatinine Est GFR (CKD-EPI)AfAm Est GFR (CKD-EPI)NonAf POC Glucometer 149 Random Glucose Calcium Magnesium HOSPITAL COURSE: Date of Admission:03/15/19 Date of Discharge: 03/16/19 64 y/o M w/PMH of Afib/flutter (s/p cardioversionx2, ablation x2, on eliquis), NIDDM, HTN, HLD presented with rectal bleeding. He had colonoscopy on March [address] Gomes where 6 polyps were removed. He was to resume his eliquis 7 days after procedure but restarted it 4 days after. He had BRBPR and became clammy and came to the ER. His H/H were monitored in the hospital and he hgb went from 13 to 11 but no bleeding was noted here. His Hgb remained stable and he did not require blood transfusions. He was able to tolerate his diet here and had no bloody BMs. Of note he had a RLE duplex US for RLE pain and was negative for DVT. He is to be discharged home and to f/u with PCP (Dr. Gardner), javascript application developer, and GI (Dr. Gomes). He is also to hold his eliquis for 10 more days and to see javascript application developer in regards for orthopedic podiatrist resumption of medication. Minutes to complete discharge: 45 Discharge Summary Reason For Visit: POST-POLYPECTOMY BLEEDING,RECTAL HEMORRHAGE, Current Active Problems Rectal bleeding (Acute) Condition: Stable - Instructions Diet, Activity, Other Instructions: You were admitted for bleeding after your colonoscopy. Your blood counts were measured here and they have remained stable here. You will need to STOP your ELIQUIS for 10 days. You may resume it if you continue to feel better and do not have any more bleeding. Please discuss with your cardilogist in 10 days for resumption FOLLOW UP: Blood work CBC (Complete blood count) in 1 week with your doctor. Follow up with your javascript application developer within the next week. You will also need to follow up with your primary care physician within the next week. Follow up with Dr. Gomes in 1 week Continue with your medications besides the eliquis as noted above that you were taking before coming to the hospital as they were prescribed. If you notice any bright red blood or dark, tarry stools,dizziness, please come to the ER especially if they are associated with light-headedness, dizziness, weakness, palpitations, chest pain, change in vision or hearing. Referrals: Roman Gardner MD [Primary Care Provider] - Bolivar Gomes MD [Staff Physician] - Disposition: HOME - Home Medications Comprehensive Discharge Medication List: Ambulatory Orders Atorvastatin Ca [Lipitor] 10 mg PO HS MDD 10 01/17/13 Fenofibrate Nanocrystallized [Tricor] 145 mg PO HS 01/17/13 metFORMIN HCL [Glucophage] 1,000 mg PO BIDAC 01/17/13 Levothyroxine [Synthroid -] 50 mcg PO ACBK #30 tablet 03/07/17 Metoprolol Succinate 50 mg PO BID 03/05/19 Ramipril 5 mg PO DAILY 03/06/19 This patient is new to me today: Yes Date on this admission: 03/16/19 Emergency Visit: Yes ED Registration Date: 03/15/19 Care time: The patient presented to the Emergency Department on the above date and was hospitalized for further evaluation of their emergent condition. Critical Care patient: No - Discharge Referral Referred to [facility] No
[2019-03-16 15:20] VITALS: BP 129/76; PULSE 79; TEMP 98.2
--- NOTE | 2019-03-16 16:09 | PN ---
Progress Note (short form) - Note Progress Note: s: no chest pain, palps, dizziness Current Medications Atorvastatin Calcium (Lipitor -) 10 mg PO HS [facility] Last Admin: 03/15/19 22:07 Dose: 10 mg Fenofibric Acid (Trilipix -) 145 mg PO HS [facility] Last Admin: 03/15/19 22:22 Dose: Not Given Insulin Aspart (Novolog Vial Sliding Scale -) 1 vial SQ [facility]; Protocol Last Admin: 03/16/19 12:09 Dose: Not Given Levothyroxine Sodium (Synthroid -) 50 mcg PO ACBK [facility] Last Admin: 03/16/19 06:19 Dose: 50 mcg Metoprolol Succinate (Toprol Xl -) 50 mg PO BID [facility] Last Admin: 03/16/19 11:02 Dose: 50 mg Vital Signs Period Temp Pulse Resp BP Sys/English Pulse Ox Last 24 Hr 97.7 F-98.2 F 65-79 18-20 123-133/71-78 99 nad no jvd rrr s1s2 no mrg cta bl nl eff aao3 no le e/c/c abd nt nd pos bs no jaundice diaphoresis pos dp pt no carotid bruits ecg: sr nl intervals no ischemic changes echo 03/2017: limited study: mild conc lvh, ?lvef, ?rv size/fcn, mod mr, mild tr, mild pr, mild ao root dil, small pericardial eff, no tamponade a/p: 64 year old male with pmh of HTN, HLD, single kidney (congenital), hypothyroid, dm, hld, afib s/p ablation 2018, here with rectal bleed. GIB: -s/p recent FOC/polypectomy -hgb stable -ok to hold eliquis for now - plan to hold 10 days per GI -GI following, no cardiac contraindications to repeat FOC if needed -per Dr. Lucero - d/w Dr. Matos who did his ablation and [facility] pt should remain on AC, but ok to continue holding for now until GIB resolves. afib/aflutter: -s/p ablation 2017, remains in SR -has been on eliquis, holding as above HTN: -cont current meds HL: -cont statin
== END 2019-03-16 16:14 | disposition home or self-care (01) | DRG 378 ==
LOC: JER 00:13 → JERBED 05:26 → J8W 09:28
PROVIDERS: ADMIT Internal Medicine; ATTEND Hospitalist
DX: K92.2 Gastrointestinal hemorrhage, unspecified (principal); N17.9 Acute kidney failure, unspecified; D62 Acute posthemorrhagic anemia; Q60.0 Renal agenesis, unilateral; I48.92 Unspecified atrial flutter; I48.91 Unspecified atrial fibrillation; Z79.01 Long term (current) use of anticoagulants; E11.9 Type 2 diabetes mellitus without complications; I10 Essential (primary) hypertension; E78.5 Hyperlipidemia, unspecified; Z79.84 Long term (current) use of oral hypoglycemic drugs; E66.9 Obesity, unspecified; E03.9 Hypothyroidism, unspecified; Z68.35 Body mass index [BMI] 35.0-35.9, adult
CPT/HCPCS: 36415; 80048; 80053; 82550; 82553; 82962; 83605; 83735; 84100; 84484; 85025; 85027; 85610; 86850; 86900; 86901; 93005; 93010; 93971-TC; 97116-GP; 97161-GP; 99285-25; J7030

== ENCOUNTER 2021-03-03 12:28 | Emergency (ER) | payer OTHER ==
[2021-03-03 13:44] VITALS: BP 148/90; PULSE 75; TEMP 98.9; BMI 35.0
[2021-03-03 13:45] LABS: EOS % 1.8 % (0-4.5); HEMATOCRIT 41.1 % (35.4-49); HEMOGLOBIN 13.5 GM/dl (11.7-16.9); LYMPH % 23.1 % (8-40); MCH 30.8 pg (25.7-33.7); MCHC 32.9 g/dl (32.0-35.9); MEAN CELL VOLUME 93.6 fl (80-96); MEAN PLT VOLUME 10.9 fl (7.5-11.1); MONO % 9.2 % (3.8-10.2); NEUT % 64.9 % (42.8-82.8); PLATELET COUNT 172 K/MM3 (134-434); RBC 4.39 M/mm3 (4.00-5.60); RDW 13.6 % (11.9-15.9); WHITE BLOOD COUNT 9.1 K/mm3 (4.0-10.8)
== END 2021-03-03 14:18 | disposition home or self-care (01) ==
LOC: FER 12:28
DX: S70.02XA Contusion of left hip, initial encounter (principal); Z79.01 Long term (current) use of anticoagulants
CPT/HCPCS: 36415; 85025; 99284-25

== ENCOUNTER 2021-06-17 12:38 | Emergency (ER) | payer OTHER ==
[2021-06-17] MEDS ORDERED: KETOROLAC TROMETHAMINE 30 MG/1 ML VIAL IM ONE (12:58)
[2021-06-17] MEDS ORDERED: KETOROLAC TROMETHAMINE 30 MG/1 ML VIAL ONE (13:06)
[2021-06-17 13:11] VITALS: BP 169/97; PULSE 68; TEMP 98.8; BMI 34.7
== END 2021-06-17 14:18 | disposition home or self-care (01) ==
LOC: FER 12:38
PROC: 3E0233Z Introduction of Anti-inflammatory into Muscle, Percutaneous Approach (ICD-10-PCS; principal; 2021-06-17)
DX: M77.11 Lateral epicondylitis, right elbow (principal); Y93.53 Activity, golf
CPT/HCPCS: 99284-25

== ENCOUNTER 2021-08-09 09:18 | Day surgery (SDC) | payer OTHER, BC ==
[2021-08-03 11:06] VITALS: BMI 34.8
[2021-08-09] MEDS ORDERED: BUPIVACAINE HCL 100 ML ONE (10:36)
[2021-08-09] MEDS ORDERED: MIDAZOLAM HCL 2 MG/2 ML SINGLE DOSE VIAL ONE (10:37)
[2021-08-09] MEDS ORDERED: PROPOFOL 20 ML ONE (10:49)
[2021-08-09] MEDS ORDERED: ceFAZolin SODIUM 1 GM VIAL ONE (10:57)
[2021-08-09] MEDS ORDERED: ONDANSETRON 4 MG/2 ML VIAL ONE (10:57)
[2021-08-09] MEDS ORDERED: DEXAMETHASONE SOD PHOSPHATE 4 MG/1 ML VIAL ONE (10:57)
[2021-08-09] MEDS ORDERED: LIDOCAINE HCL/PF 2% SDV 5ML VIAL ONE (10:57)
[2021-08-09] MEDS ORDERED: BUPIVACAINE HCL/PF 0.25% (2.5MG/ML) 10 ML VIAL ONE (11:05)
[2021-08-09] MEDS ORDERED: BUPIVACAINE HCL/PF 2.5 MG/ML - 30 ML VIAL IJ ONE (11:27)
[2021-08-09] MEDS ORDERED: oxyCODONE HCL 5 MG TABLET PO PRN ×2 (11:58)
[2021-08-09] MEDS ORDERED: ONDANSETRON 4 MG/2 ML VIAL IVPUSH PRN (11:58)
[2021-08-09] MEDS ORDERED: LACTATED RINGERS SOLUTION 1,000 ML IV SCH (12:00)
[2021-08-09 12:08] VITALS: PULSE 71
[2021-08-09 12:41] VITALS: BP 139/81; TEMP 97.3
== END 2021-08-09 12:54 | disposition home or self-care (01) ==
LOC: FASU 09:18
PROVIDERS: ATTEND Orthopaedic Surgery Hand Surgery
PROC: 0RBS0ZZ Excision of Right Carpometacarpal Joint, Open Approach (ICD-10-PCS; principal; 2021-08-09 11:04)
DX: M19.041 Primary osteoarthritis, right hand (principal); M25.831 Other specified joint disorders, right wrist
CPT/HCPCS: 82962; 88304-TC; 88311-TC; 94760

== ENCOUNTER 2023-10-26 14:45 | Emergency (ER) | payer OTHER ==
[2023-10-26 14:54] VITALS: BP 155/99; PULSE 70; RESP 16; TEMP 97.8; BMI 34.5
== END 2023-10-26 16:35 | disposition home or self-care (01) ==
LOC: FER 14:45
DX: R10.31 Right lower quadrant pain (principal); R21 Rash and other nonspecific skin eruption; S39.011A Strain of muscle, fascia and tendon of abdomen, initial encounter; R06.02 Shortness of breath; X58.XXXA Exposure to other specified factors, initial encounter
CPT/HCPCS: 93971-TC; 99284-25

== ENCOUNTER 2024-04-29 04:39 | Day surgery (SDC) | payer OTHER ==
[2024-04-20 12:22] VITALS: BMI 34.8
[2024-04-29 08:14] VITALS: RESP 18
[2024-04-29 09:50] VITALS: TEMP 97.4
[2024-04-29 10:22] VITALS: BP 120/70; PULSE 59
== END 2024-04-29 10:00 | disposition home or self-care (01) ==
LOC: JASU-ENDO 04:39
PROVIDERS: ATTEND Internal Medicine Gastroenterology
PROC: 0DBP8ZX Excision of Rectum, Via Natural or Artificial Opening Endoscopic, Diagnostic (ICD-10-PCS; 2024-04-29)
PROC: 0DBL8ZX Excision of Transverse Colon, Via Natural or Artificial Opening Endoscopic, Diagnostic (ICD-10-PCS; 2024-04-29)
PROC: 0DBL8ZX Excision of Transverse Colon, Via Natural or Artificial Opening Endoscopic, Diagnostic (ICD-10-PCS; principal; 2024-04-29 09:00)
DX: Z12.11 Encounter for screening for malignant neoplasm of colon (principal); D12.3 Benign neoplasm of transverse colon; D12.8 Benign neoplasm of rectum; K63.5 Polyp of colon; K64.8 Other hemorrhoids; K57.30 Diverticulosis of large intestine without perforation or abscess without bleeding; I10 Essential (primary) hypertension; E11.9 Type 2 diabetes mellitus without complications; Z79.84 Long term (current) use of oral hypoglycemic drugs
CPT/HCPCS: 82962; 88305-TC